=== PATIENT | male | born 1940 | race African-American/Black ===

== ENCOUNTER 2017-07-21 09:50 | Inpatient (IN) | payer MEDICARE ==
[2017-07-21 10:46] LABS: #Eosinphils 0.2 thou/uL (0.0-0.7); #Lymphocytes 1.9 thou/uL (1.20-3.40); #Monocytes 0.8 thou/uL (0.11-0.59); #Neutrophils 7.3 thou/uL (1.40-6.50); %Basophils 0.1 % (0.0-1.0); %Eosinophils 1.6 % (0.0-10.0); %Lymphocytes 18.7 % (21.0-51.0); %Monocytes 7.8 % (0.0-10.0); %Neutrophils 71.8 % (42.0-75.0); Hemoglobin 6.9 g/dL (14.0-18.0); Mean Corpuscular HGB CONC 28.3 g/dL (32.0-36.0); Mean Corpuscular Hemoglobin 18.3 pg (27.0-31.0); Mean Corpuscular Volume 64.5 fl (80.0-94.0); Mean Platelet Volume 5.4 fL (7.4-10.4); Platelet Count 307 thou/uL (130-400); RBC Distribution Width 18.6 % (11.5-14.5); White Blood Cell (WBC) Count 10.2 thou/uL (4.8-10.8)
[2017-07-21 11:02] LABS: Bilirubin Negative (Negative); Blood, Urine Negative (Negative); Glucose, Urine (Dipstick) 500 mg/dL (Negative); Leukocyte Small (Negative); Nitrite Positive (Negative); Protein, Urine (Dipstick) Negative (Neg-Trace); Urobilinogen 0.2 mg/dL (0.2-1.0)
[2017-07-21 11:05] LABS: Clarity CLEAR (Clear)
[2017-07-21 11:08] LABS: Bacteria/HPF 2+ HPF (None Seen); Hyaline Casts/LPF NONE SEEN LPF (0-3 Hyaline); RBC/HPF 0-3 HPF (0-3); Squamous Epithelial 0-3 HPF (0-3)
[2017-07-21 11:22] LABS: Hypochromia MODERATE=16-30 cells (100X) (0-5/hpf); MDiff Complete? YES; Microcytosis MARKED = >30 cells (100X) (0-5/hpf); Ovalocytes SLIGHT = 2-5 cells (100X) (0-1/hpf); PLT Morphology Comment Appears Adequate; Polychromasia SLIGHT = 2-3 cells (100X) (0-2/hpf)
[2017-07-21 11:35] LABS: ALT (SGPT) 13 U/L (8-55); AST (SGOT) 10 U/L (5-34); Albumin 3.4 g/dL (3.4-4.8); Alkaline Phosphatase 109 U/L (40-150); Anion Gap 10 mmol/L (10-20); BUN (Urea Nitrogen) 7 mg/dL (8.4-25.7); Bilirubin, Total 0.3 mg/dL (0.2-1.2); Calc. Creatinine Clearance 0 mL/min (70-130); Calcium 9.4 mg/dL (7.8-10.44); Carbon Dioxide 24 mmol/L (23-31); Chloride 103 mmol/L (98-107); Estimated GFR-MDRD 83; Globulin 3.5 g/dL (2.4-3.5); Glucose 273 mg/dL (83-110); Protein, Total 6.9 g/dL (5.8-8.1); Sodium 133 mmol/L (136-145)
[2017-07-21 12:26] LABS: Reflex for Review?? YES
[2017-07-21] MEDS ORDERED: Fentanyl 100 MCG/2 ML VIAL ONE (12:31)
[2017-07-21] MEDS ORDERED: diphenhydrAMINE 50 MG/ML VIAL ONE (12:32)
[2017-07-21] MEDS ORDERED: Bisacodyl 5 MG TAB PO PRN (13:16)
[2017-07-21] MEDS ORDERED: Acetaminophen 650 MG Suppository PR PRN (13:16)
[2017-07-21] MEDS ORDERED: Acetaminophen 325 MG TAB PO PRN (13:16)
[2017-07-21] MEDS ORDERED: Ondansetron HCl/PF 4 MG/2 ML Vial IVP PRN (13:16)
[2017-07-21] MEDS ORDERED: cefTRIAXone\\ROCEPHIN 1 GM in Sodium Chloride 0.9% 100 ML IVPB SCH (13:30)
[2017-07-21 14:21] LABS: Iron 12 ug/dL (65-175); Iron Binding Capacity, Total 356 mcg/dL (261-462)
[2017-07-21] MEDS ORDERED: Dextrose 50% Abboject 50 ML SYRINGE SLOW IVP PRN (14:38)
[2017-07-21] MEDS ORDERED: Dextrose 5% in Water 1,000 ML IV PRN (14:38)
[2017-07-21] MEDS ORDERED: HumaLOG 300 UNITS/3 ML VIAL SC PRN (14:38)
[2017-07-21 14:43] LABS: Ferritin 4.15 ng/mL (22-322); Thyroid Stimulating Hormone 0.2255 uIU/mL (0.35-4.94)
[2017-07-21 14:58] LABS: Folate (Folic Acid) 12.6 ng/mL (7.0-31.4)
--- NOTE | 2017-07-21 15:09 | HP ---
PRIMARY CARE PHYSICIAN: Dr. Catrachito Mayo CHIEF COMPLAINT: Anemia. HISTORY OF PRESENT ILLNESS: Mr. Pacheco is a pleasant 76-year-old gentleman who was seen at [facility] on 07/21/2017 following transfer from [place]. About 1-1/2 months ago, he developed a lesion over his penis. He reports that it was aching and burn ing. He denies having any dysuria. He was treated with an anti-itch cream as well as what appears t o be an antifungal cream. He reports that the pain continued. He denies any discharge from the peni s. He denies any fevers or chills. He denies any nausea or vomiting. Today, he reports the pain is sharp, 10/10, nonradiating, no known aggravating or relieving factors, not accompanied by fevers or chills. He also reports weight loss of 15 pounds over the last 2 months. He reports that he is eati ng well. He presented to the emergency room at [place] for his penile pain. There, he was found to have anemia. He was transferred to this facility for further management. REVIEW OF SYSTEMS: The following complete review of systems was negative, unless otherwise mentioned in the HPI or below: Constitutional: Weight loss or gain, ability to conduct usual activities. Skin: Rash, itching. Eyes: Double vision, pain. ENT/Mouth: Nose bleeding, neck stiffness, pain, tenderness. Cardiovascular: Palpitations, dyspnea on exertion, orthopnea. Respiratory: Shortness of breath, wheezing, cough, hemoptysis, fever or night sweats. Gastrointestinal: Poor appetite, abdominal pain, heartburn, nausea, vomiting, constipation, or diarrhea. Genitourinary: Urgency, frequency, dysuria, nocturia. Musculoskeletal: Pain, swelling. Neurologic/Psychiatric: Anxiety, depression. Allergy/Immunologic: Skin rash, bleeding tendency. PAST MEDICAL HISTORY: Significant for coronary artery disease, congestive heart failure, hypertensio n, dyslipidemia, prostate cancer. PAST SURGICAL HISTORY: Significant for cardiac catheterization and prostate biopsy. SOCIAL HISTORY: The patient smokes half a pack of cigarettes a day. He denies any alcohol use or re creational drug use. FAMILY HISTORY: Significant for colon cancer in his sister. CODE STATUS: I discussed his code status. He is FULL CODE. ALLERGIES: No known drug allergies. CURRENT MEDICATIONS: Include aspirin 81 mg daily, lisinopril 20 mg daily, isosorbide mononitrate 20 mg daily, Lantus insulin 12 units subcutaneously 2 times a day. PHYSICAL EXAMINATION: GENERAL: Mr. Pacheco is awake and alert, not in acute distress. VITAL SIGNS: Blood pressure is 177/81. Pulse is 92, he is breathing at rate of 16, and saturating 9 8% on room air. He is afebrile. EYES: He has conjunctival erythema. No scleral icterus. ENT: Moist mucosal membranes, no oropharyngeal erythema or exudates. NECK: Supple, nontender, normal range of movement. Trachea is midline. RESPIRATORY: Accessory muscles of breathing are not active. Chest wall movements are symmetric bila terally. LUNGS: Clear to auscultation without wheeze, rhonchi or crepitations. CARDIOVASCULAR: S1 and S2 are heard, regular. LUNGS: Peripheral pulses palpable. No carotid bruit, no pericardial rub. ABDOMEN: Soft, distended, nontender, bowel sounds heard, no hepatomegaly, no splenomegaly. GENITOURINARY: He is tender to touch over the penis. I could not retract his foreskin secondary to pain. He does have a white material under the prepuce. It is unclear whether this is his antifungal cream or a discharge. NEUROLOGIC: Cranial nerves II-XII are intact. Deep tendon reflexes are 2+. LYMPHATIC: No cervical lymphadenopathy. SKIN: No rashes or subcutaneous nodules. PSYCHIATRIC: Normal mood and normal affect, patient is oriented to person, place, month and year, bu t not to date. LABORATORY DATA: Mr. Pacheco labs and investigations were reviewed. He has a normal white count, micr ocytic anemia with hemoglobin of 6.9, normal platelet count, last known hemoglobin was 12.4 on 2013, he has mild hyponatremia with sodium 133, normal potassium, normal creatinine, unremarkable kleber er profile, urinalysis is positive for nitrites and leukocyte esterase. ASSESSMENT AND PLAN: Mr. Pacheco is a pleasant 76-year-old gentleman who was seen at [facility] on 07/21/2017. His problem list includes: 1. Anemia: He has microcytic anemia, etiology unclear. He will be admitted to the hospital for fur ther management. We will check iron studies, vitamin B12 and folate level. We will consult GI for m icrocytic anemia, given his history of recent weight loss. 2. Urinary tract infection. He has evidence of urinary tract infection. We will start him on ceftr iaxone. 3. Penile lesions. We will start him on empiric fluconazole and request Urology Service input. Uro logy Service has been consulted by the emergency room physician. 4. Hyponatremia: Mild, recheck sodium level. 5. Diabetes mellitus. I will start Accu-Cheks, insulin sliding scale. 6. Hypertension: Monitor vital signs, titrate antihypertensives as needed. 7. Coronary artery disease: Stable. Many thanks for allowing me to participate in your patient's care. Please feel free to contact me wi th any questions or concerns. LEVEL OF RISK: Moderate. LEVEL OF COMPLEXITY: Moderate.
[2017-07-21 15:37] VITALS: BMI 31.6
[2017-07-21] MEDS ORDERED: GoLYTELY 4,000 ml Bottle PO SCH (16:00)
[2017-07-21] MEDS: cefTRIAXone\\ROCEPHIN 1 GM, Syringe 0.4 ML in Sterile Water 9.6 ML SLOW IVP SCH (16:30)
--- NOTE | 2017-07-21 18:26 | CON ---
DATE OF CONSULTATION: 07/21/2017 GASTROENTEROLOGY INPATIENT CONSULTATION REASON FOR CONSULTATION: Anemia. HISTORY OF PRESENT ILLNESS: Kirby Pacheco is a very pleasant 76-year-old -[place]ian gentleman wi th a prior history of prostate cancer, diabetes type 2, GERD, congestive heart failure, and hyperlipi demia. He evidently had a cardiac catheterization way back in 1990. He does smoke cigarettes. He w as admitted to the hospital earlier today after presenting to the emergency department with penile pa in and rash, which has been thought to represent fungal infection. However, upon evaluation, he was found to be severely anemic and iron deficient, and so he has been admitted for further workup. The patient reports that last summer he was told elsewhere that he was anemic, but he never followed up f or this. He never got put on iron supplementation. He denies any overt bleeding from anywhere excep t for getting nosebleeds may be every few months, but he denies any hematemesis, melena, hematochezia or gross hematuria. He says prior to last summer he never had any history of anemia. He has never undergone EGD or colonoscopy. Notably, he thinks his father had colon cancer and he believes his sis ter had colon cancer as well in her 70s. He takes aspirin daily and Advil on an as needed basis, but he denies any primary gastrointestinal symptoms such as abdominal pain, nausea, vomiting, diarrhea, constipation, melena or hematochezia. He has been losing weight over the past year. He thinks it ma y have been about 100 pounds, but his daughter does not think it has been nearly that much. REVIEW OF SYSTEMS: Full review of systems including constitutional, head, eyes, ears, nose, throat, GI, , cardiovascular, respiratory, musculoskeletal, and neurologic systems is negative except as no alexandro in the HPI. PAST MEDICAL HISTORY: Diabetes type 2, hypertension, hyperlipidemia, congestive heart failure, and t obacco abuse. ALLERGIES: No known drug allergies. MEDICATIONS: Aspirin 81 mg daily, lisinopril 20 mg daily, isosorbide mononitrate 20 mg daily, Lantus 12 units twice daily. SOCIAL HISTORY: He smokes 1-1/2 packs per day. No alcohol or drug abuse. He lives at home with dianne morrow. FAMILY HISTORY: He believes his father had colon cancer. He has more certain that his sister had co sofia cancer and of this in her 70s. PHYSICAL EXAMINATION: VITAL SIGNS: Temperature 98.8, pulse 87, blood pressure 161/80, 99% oxygen saturation on room air. GENERAL: A 76-year-old -[place]ian man lying in bed comfortably, in no distress. SKIN: No jaundice, no rashes were palpable. EYES: No scleral icterus. Extraocular movements are intact. ENT: Mucous membranes moist, no oral lesions. LYMPH: No submandibular, supraclavicular lymphadenopathy. THYROID: Nontender to palpation. HEART: Regular rate and rhythm. LUNGS: Clear to auscultation bilaterally. ABDOMEN: Soft, bowel sounds active. Nontender to palpation throughout. No masses or organomegaly a ppreciated. EXTREMITIES: No peripheral edema. VESSELS: Radial pulses 2+ bilaterally. NEUROLOGIC: Cranial nerves II through XII intact bilaterally. No focal deficits. LABORATORY STUDIES: Hemoglobin 6.9, MCV 64.5, WBC 10.2, platelets 307. Sodium 133, potassium 4.0, B UN 7, creatinine 1.06, glucose 302, ferritin only 4.15, iron only 12, TIBC 356. LFTs all normal with total bilirubin 0.3, alkaline phosphatase 109, AST 10, ALT 13, albumin 3.4. Vitamin B12 was normal at 378. Folate is normal at 12.6. TSH is low at 0.22. ASSESSMENT: 1. Iron deficiency anemia. 2. Unintentional weight loss. 3. Family history of colon cancer. PLAN: I discussed with Mr. Pacheco that his presentation is concerning for potential occult bleeding l esion. He does have a strong family history of colon cancer and has never undergone endoscopy. Note , he also will take NSAIDs on an as needed basis. Agree with blood transfusion. We will go ahead an d schedule him for EGD and colonoscopy tomorrow after bowel preparation tonight. The patient underst ands and agrees with the plan.
[2017-07-21] MEDS: Nicotine 14 MG PATCH TD SCH (20:41)
[2017-07-21] MEDS ORDERED: FLU VACC TS2017-18 (>65YR) 0.5 ML SYRINGE IM ONE (21:00)
[2017-07-22 04:27] LABS: Anion Gap 8 mmol/L (10-20); BUN (Urea Nitrogen) 8 mg/dL (8.4-25.7); Calc. Creatinine Clearance 73 mL/min (70-130); Calcium 9.4 mg/dL (7.8-10.44); Carbon Dioxide 25 mmol/L (23-31); Chloride 105 mmol/L (98-107); Estimated GFR-MDRD 84; Glucose 179 mg/dL (83-110); Potassium 4.3 mmol/L (3.5-5.1); Sodium 134 mmol/L (136-145)
[2017-07-22 04:35] LABS: #Eosinphils 0.1 thou/uL (0.0-0.7); #Lymphocytes 1.8 thou/uL (1.20-3.40); #Monocytes 0.8 thou/uL (0.11-0.59); #Neutrophils 8.5 thou/uL (1.40-6.50); %Basophils 0.2 % (0.0-1.0); %Eosinophils 1.3 % (0.0-10.0); %Lymphocytes 15.9 % (21.0-51.0); %Monocytes 7.1 % (0.0-10.0); %Neutrophils 75.5 % (42.0-75.0); Anisocytosis SLIGHT = 6-15 cells (100X) (0-5/hpf); Elliptocytes SLIGHT = 2-5 cells (100X) (0-1/hpf); Hemoglobin 7.7 g/dL (14.0-18.0); Hypochromia MODERATE=16-30 cells (100X) (0-5/hpf); MDiff Complete? YES; Mean Corpuscular Hemoglobin 19.1 pg (27.0-31.0); Mean Corpuscular Volume 65.7 fl (80.0-94.0); Mean Platelet Volume 5.4 fL (7.4-10.4); PLT Morphology Comment Appears Adequate; Platelet Count 299 thou/uL (130-400); RBC Distribution Width 19.1 % (11.5-14.5); Red Blood Cell (RBC) Count 4.05 mill/uL (4.70-6.10); White Blood Cell (WBC) Count 11.3 thou/uL (4.8-10.8)
[2017-07-22] MEDS: Fluconazole 100 MG TAB PO SCH (08:33)
[2017-07-22 09:20] LABS: Free T4 (Free Thyroxine) 1.01 ng/dL (0.70-1.48)
[2017-07-22] MEDS ORDERED: Fentanyl 100 MCG/2 ML VIAL ONE (13:43)
[2017-07-22] MEDS: cefTRIAXone\\ROCEPHIN 1 GM, Syringe 0.4 ML in Sterile Water 9.6 ML SLOW IVP SCH (14:59)
--- NOTE | 2017-07-22 15:25 | PDOC.PN ---
- Subjective Encounter Start Date: 07/22/17 Encounter Start Time: 07:40 Pt seen for followup re: anemia. Denies chest pain or shortness of breath. Has ongoing penile pain. - Objective Resuscitation Status: Resuscitation Status FULL:Full Resuscitation MAR Reviewed: Yes Vital Signs & Weight: Vital Signs (12 hours) Temp Pulse Resp BP Pulse Ox 07/22/17 12:00 98.6 F 89 16 147/74 H 100 07/22/17 11:31 98.5 F 87 16 160/80 H 97 07/22/17 08:33 160/84 H 07/22/17 08:00 98.5 F 95 16 99 07/22/17 07:23 98.5 F 95 16 181/95 H 99 07/22/17 04:25 98.4 F 77 20 158/77 H 98 Weight Admit Weight 184 lb 3.2 oz Weight 184 lb 3.2 oz I&O: 07/21/17 07/22/17 07/23/17 06:59 06:59 06:59 Intake Total 350 Balance 350 Result Diagrams: 07/22/17 03:52 07/22/17 03:52 Additional Labs: Accuchecks 07/22/17 07/21/17 07/21/17 11:12 20:44 15:33 POC Glucose 163 H 180 H 354 H Phys Exam - Physical Examination Obese HEENT: PERRLA, moist MMs, sclera anicteric, oral pharynx no lesions Neck: no nodes, no JVD, supple, full ROM Respiratory: no wheezing, no rales, no rhonchi, clear to auscultation bilateral Cardiovascular: RRR, no rub Gastrointestinal: soft, non-tender, positive bowel sounds distention Neurological: moves all 4 limbs Psychiatric: normal affect Skin: no rash Dx/Plan (1) Anemia Code(s): D64.9 - ANEMIA, UNSPECIFIED Status: Acute (2) Penile lesion Code(s): N48.9 - DISORDER OF PENIS, UNSPECIFIED Status: Acute (3) Urinary tract infection Status: Acute (4) DM2 (diabetes mellitus, type 2) Status: Chronic - Plan * . Continue IV ceftriaxone. Pt going for EGD/C-scope. Continue acccuchecks, insulin sliding scale. Await urology consult. Review of Systems - Review of Systems Constitutional: negative: fever, chills, sweats, weakness, malaise Respiratory: negative: Cough, Dry, Shortness of Breath, Hemoptysis, SOB with Excertion, Pleuritic Pain, Sputum, Wheezing Cardiovascular: negative: chest pain, palpitations, orthopnea, paroxysmal nocturnal dyspnea, edema, light headedness Gastrointestinal: negative: Nausea, Vomiting, Abdominal Pain, Diarrhea, Constipation, Melena, Hematochezia Genitourinary: Other (Penile pain). negative: Dysuria, Frequency, Incontinence , Hematuria, Retention - Medications/Allergies Allergies/Adverse Reactions: Allergies Allergy/AdvReac Type Severity Reaction Status Date / Time No Known Allergies Allergy Verified 07/21/17 15:38 Medications: Current Medications Acetaminophen (Tylenol) 650 mg PO Q4H PRN PRN Reason: Headache/Fever or Pain Acetaminophen (Tylenol) 650 mg [place] Q4H PRN PRN Reason: Headache/Fever or Pain Bisacodyl (Dulcolax) 10 mg PO DAILYPRN PRN PRN Reason: Constipation Dextrose/Water (Dextrose 50%) 25 gm SLOW IVP PRN PRN PRN Reason: Hypoglycemia Fluconazole (Diflucan) 100 mg PO DAILY [facility] Last Admin: 07/22/17 08:33 Dose: 100 mg Glucagon (Glucagon) 1 mg IM PRN PRN PRN Reason: Hypoglycemia Ceftriaxone Sodium 1 gm/ (Syringe 0.4 ml/ Sterile Water) 10 mls @ 120 mls/hr SLOW IVP 1400 [facility] Last Admin: 07/22/17 14:59 Dose: Not Given Dextrose/Water (D5w) 1,000 mls @ 0 mls/hr IV .Q0M PRN; As Directed PRN Reason: Hypoglycemia Insulin Human Lispro (Humalog) 0 units SC .MILD SLIDING SCALE PRN PRN Reason: Mild Correctional Scale Last Admin: 07/21/17 16:24 Dose: 6 unit Nicotine (Nicoderm Patch) 14 mg TD Q24HR [facility] Last Admin: 07/21/17 20:41 Dose: 14 mg
--- NOTE | 2017-07-22 15:54 | OP ---
DATE OF PROCEDURE: 07/22/2017 SURGEON: Finn Douglas MD [employer]VENUE CYCLE MANAGER SURGEON: None. PROCEDURES: 1. Esophagogastroduodenoscopy with biopsies. 2. Colonoscopy, aborted due to poor bowel preparation. INDICATIONS: 1. Iron deficiency anemia. 2. Weight loss. 3. Family history of colon cancer. MEDICATIONS: See anesthesia record. FINDINGS: After discussion of the risks, benefits and alternatives of the procedure, informed consen t was obtained and witnessed. Pre-endoscopic cardiopulmonary examination was satisfactory. Timeout was performed before sedation was achieved. Sedation was achieved with anesthesia assistance in the endoscopy unit. A Pentax adult upper endoscope was placed into the oropharynx and passed through the cricopharyngeus under direct visualization. In the proximal esophagus at 23 cm from the incisors, t here is a very small area, which appears to represent an inlet patch. There is some erythema, but no oozing and no bleeding from this area. The remainder of the esophagus appears normal throughout wit h a normal-appearing Z-line. The endoscope was advanced into the stomach. Forward and retroflexed v iews of the entire gastric mucosa were obtained. In the gastric antrum, there is some mild gastritis characterized by friability, atrophic mucosa and a few shallow nonbleeding erosions. Biopsies were obtained from the gastric antrum and body to rule out H. pylori infection. The endoscope was then ad vanced beyond the pylorus and into the first and second portions of the duodenum. There is a medium size nonbleeding arteriovenous malformation in the second portion of the duodenum and a few other pun ctate AVMs in the duodenal bulb also nonbleeding. The upper endoscope was completely withdrawn and t he patient was repositioned. Digital rectal exam was performed, which demonstrated some external hemorrhoids. A Pentax adult colo noscope was inserted into the anus and advanced forward in the usual fashion. The quality of the bow el preparation was poor. There was a large amount of solid and semisolid stool in the rectum, sigmoi d colon and descending colon. After passage of the colonoscope to 50 cm, it became evident that this would be too much to clear by irrigation and suctioning; and therefore, the procedure was aborted. The endoscope was completely withdrawn and the patient allowed to recover. The patient tolerated the procedure well. There were no immediate post-procedure complications. IMPRESSION: 1. Small inlet patch in the upper esophagus at 23 cm, nonbleeding. 2. Mild erosive gastropathy in the antrum, biopsied. 3. A few small duodenal arteriovenous malformations, nonbleeding. 4. Poor bowel preparation, unable to visualize the colon. RECOMMENDATIONS: 1. Daily proton pump inhibitor. 2. Avoid NSAIDs. 3. Follow up pathology results on the gastric biopsies. 4. Repeat bowel prep tonight. 5. Repeat colonoscopy tomorrow.
[2017-07-22] MEDS ORDERED: Lidocaine 1% PF 5 ML VIAL ONE (15:59)
[2017-07-22] MEDS ORDERED: Propofol 200 MG/20 ML VIAL ONE (15:59)
[2017-07-22] MEDS ORDERED: GoLYTELY 4,000 ml Bottle PO SCH (17:00)
[2017-07-22] MEDS: Nicotine 14 MG PATCH TD SCH (20:59)
--- NOTE | 2017-07-23 01:28 | CON ---
HISTORY OF PRESENT ILLNESS: This is a 76-year-old -[place] male, I was asked to see on consu lt late this afternoon and a call was made. He was admitted yesterday. He was admitted with a diagn osis of scrotal cellulitis and anemia. He was transfused and he underwent an EGD today which was not tj for revealing. He is to have a colonoscopy tomorrow, is undergoing prep for that now. He did n ot realize he was anemic this is the first time he has been aware of it. He had not been feeling wel l, but feels a bit better after his transfusion. He has had a rash on his scrotum for 2 months. He has seen his family doctor, Dr. Mayo, he was treated with a topical antifungal cream and has not helped itchy rash. He denies any urinary incontinence. He is a type 2 diabetic. He states that he voids adequately. Force of stream is good. There is no dysuria, no blood in his urine ever. No hi story of urinary tract infections or stone diseases. He gets up 3 times at night. He has occasional urgency during the day, but he is not really bothered with any urge incontinence. Feels like he emp ties okay. He has a strong family history of prostate cancer in his father and at least 2 brothers h ad it, one brother that may have from it. He apparently had either an elevated PSA or pr ostate nodule and 2 or 3 years ago, he had undergone a prostate biopsy by one of the urologists at [facility] and he was told he does not have prostate cancer. I can find no record of this year at [facility], so I can check tomorrow at my office at [facility] to see if I can jin this down. I have been asked to see him because of this scrotal cellulitis. PAST MEDICAL HISTORY: He has type 2 diabetes as mentioned, he has a history of congestive heart fail ure, hypertension, hyperlipidemia, and coronary artery disease. PAST SURGICAL HISTORY: He has had a cardiac catheterization done, this is the only surgical procedur e as well as prostate biopsy which again he states did not show prostate cancer. ALLERGIES: He has no known drug allergies. SOCIAL HISTORY: He does smoke a half pack of cigarettes a day, which he has done for a long time. H e does not drink at all. FAMILY HISTORY: Positive for colon cancer as well as a very strong family history for prostate cance r. MEDICATIONS: His routine medicines were isosorbide, insulin, lisinopril, and aspirin as well as topi ruy antifungal cream. His current medications are Tylenol, Dulcolax, Rocephin, Diflucan, which has a lready been started on 100 mg a day, and Protonix. LABORATORY: His hemoglobin is 6.9 yesterday, 7.7 today that was after transfusion. His creatinine i s 1.05 this morning and was 1.06 yesterday. His urinalysis when he came in showed nitrites to be pos itive, 7-10 white cells, 2+ bacteria. Culture has been set up and is pending. Blood cultures are se t up, there are also pending currently. His vital signs since he has been here, his T-max has been 99.0, his blood pressure and pulse have al l been normal. His O2 sat on room air have been fine. He had apart from the EGD and attempted colon oscopy today, he has had no other procedures done nor any other imaging done. PHYSICAL EXAMINATION: His flanks are nontender. His abdomen is soft, nontender. Bladder is not dist ended. He is not circumcised. There is mild phimosis, but he can retract the foreskin, there are so me scarring of the distal foreskin probably related to his diabetes. There are no abnormal lesions n oted on the penis currently. He does have some areas of ulceration on the scrotum and some mild eryt martita. There is nothing to suggest Lupillo's. There is no crepitance. There is no fluctuance. Rec cynthia exam reveals normal tone. He does have a firm and nodular prostate and an enlarged prostate. I cannot find that he has had a PSA blood test anywhere in the [facility]. IMPRESSION: 1. Mild scrotal erythema with some areas of mild ulceration, which I am not sure of the cause of. [place] has been started on Diflucan, I think keeping him on that for a few days and see me, if it does not clear up reasonable and does not appear that is related to urinary incontinence. Should it not bronwyn r up with Diflucan, then it may be that he will require dermatologic evaluation. 2. Prosthetic induration with a family history of prostate cancer, but no definite history of prosta te cancer on him and I am going to get a PSA blood test done on him while he is here and I will try t o jin down his prostate biopsies from [facility]. I will follow along with you during this adm ission.
[2017-07-23 04:51] LABS: #Eosinphils 0.1 thou/uL (0.0-0.7); #Lymphocytes 1.5 thou/uL (1.20-3.40); #Monocytes 0.8 thou/uL (0.11-0.59); %Basophils 0.4 % (0.0-1.0); %Eosinophils 1.5 % (0.0-10.0); %Lymphocytes 17.8 % (21.0-51.0); %Monocytes 9.4 % (0.0-10.0); Anion Gap 11 mmol/L (10-20); BUN (Urea Nitrogen) 10 mg/dL (8.4-25.7); Calc. Creatinine Clearance 74 mL/min (70-130); Calcium 9.6 mg/dL (7.8-10.44); Carbon Dioxide 27 mmol/L (23-31); Chloride 106 mmol/L (98-107); Estimated GFR-MDRD 84; Glucose 130 mg/dL (83-110); Hemoglobin 7.8 g/dL (14.0-18.0); Mean Corpuscular HGB CONC 28.8 g/dL (32.0-36.0); Mean Corpuscular Hemoglobin 19.1 pg (27.0-31.0); Mean Corpuscular Volume 66.2 fl (80.0-94.0); Mean Platelet Volume 11.7 fL (7.4-10.4); Platelet Count 299 thou/uL (130-400); Potassium 4.5 mmol/L (3.5-5.1); RBC Distribution Width 19.4 % (11.5-14.5); Sodium 139 mmol/L (136-145); White Blood Cell (WBC) Count 8.5 thou/uL (4.8-10.8)
[2017-07-23] MEDS: Fluconazole 100 MG TAB PO SCH (08:37)
[2017-07-23] MEDS ORDERED: Iopamidol 370 76% 50 ML VIAL FS ONE (13:15)
[2017-07-23] MEDS ORDERED: ISOVUE-370 76%-LOCM 1 ML ONE (13:15)
[2017-07-23] MEDS: cefTRIAXone\\ROCEPHIN 1 GM, Syringe 0.4 ML in Sterile Water 9.6 ML SLOW IVP SCH (14:03)
[2017-07-23] MEDS ORDERED: Propofol 200 MG/20 ML VIAL ONE (15:14)
[2017-07-23] MEDS ORDERED: Promethazine HCl 25 MG/ML VIAL SLOW IVP PRN (15:21)
[2017-07-23] MEDS ORDERED: Ondansetron HCl/PF 4 MG/2 ML Vial IVP PRN (15:21)
[2017-07-23] MEDS ORDERED: Promethazine HCl 25 MG/ML VIAL IM PRN (15:21)
--- NOTE | 2017-07-23 16:52 | PDOC.PN ---
- Subjective Encounter Start Date: 07/23/17 Encounter Start Time: 08:20 Pt seen for followup re: anemia. Denies chest pain, shortness of breath, fevers or chills. - Objective Resuscitation Status: Resuscitation Status FULL:Full Resuscitation MAR Reviewed: Yes Vital Signs & Weight: Vital Signs (12 hours) Temp Pulse Resp BP BP Pulse Ox 07/23/17 16:12 97.7 F 95 16 173/81 H 100 07/23/17 11:34 98 F 89 16 178/78 H 97 07/23/17 08:00 98.7 F 91 16 99 07/23/17 07:00 98.7 F 91 16 170/78 H 99 07/23/17 05:50 97.9 F 94 20 149/74 H Weight Admit Weight 184 lb 3.2 oz Weight 184 lb 3.2 oz I&O: 07/22/17 07/23/17 07/24/17 06:59 06:59 06:59 Intake Total 350 Balance 350 Result Diagrams: 07/23/17 03:58 07/23/17 03:58 Additional Labs: Accuchecks 07/23/17 07/23/17 07/23/17 16:11 11:33 05:53 POC Glucose 96 112 H 136 H 07/22/17 07/22/17 20:59 16:14 POC Glucose 149 H 136 H Phys Exam - Physical Examination Obese HEENT: moist MMs Neck: supple Respiratory: clear to auscultation bilateral Cardiovascular: RRR Gastrointestinal: soft Neurological: moves all 4 limbs Psychiatric: normal affect Skin: cap refill <2 seconds Dx/Plan (1) Anemia Code(s): D64.9 - ANEMIA, UNSPECIFIED Status: Acute (2) Penile lesion Code(s): N48.9 - DISORDER OF PENIS, UNSPECIFIED Status: Acute (3) Urinary tract infection Status: Acute (4) DM2 (diabetes mellitus, type 2) Status: Chronic - Plan continue antibiotics, PT/OT, out of bed/ambulate * . UTI with rodas-sensitive Klebsiella pneumoniae. Colonoscopy today. Appreciate GI and urology services input. TSH low but free T3 and freeT4 are normal. Review of Systems - Review of Systems Respiratory: negative: Cough, Dry, Shortness of Breath, Hemoptysis, SOB with Excertion, Pleuritic Pain, Sputum, Wheezing Cardiovascular: negative: chest pain, palpitations, orthopnea, paroxysmal nocturnal dyspnea, edema, light headedness - Medications/Allergies Allergies/Adverse Reactions: Allergies Allergy/AdvReac Type Severity Reaction Status Date / Time No Known Allergies Allergy Verified 07/21/17 15:38 Medications: Current Medications Acetaminophen (Tylenol) 650 mg PO Q4H PRN PRN Reason: Headache/Fever or Pain Acetaminophen (Tylenol) 650 mg [place] Q4H PRN PRN Reason: Headache/Fever or Pain Bisacodyl (Dulcolax) 10 mg PO DAILYPRN PRN PRN Reason: Constipation Dextrose/Water (Dextrose 50%) 25 gm SLOW IVP PRN PRN PRN Reason: Hypoglycemia Fluconazole (Diflucan) 100 mg PO DAILY [facility] Last Admin: 07/23/17 08:37 Dose: 100 mg Glucagon (Glucagon) 1 mg IM PRN PRN PRN Reason: Hypoglycemia Ceftriaxone Sodium 1 gm/ (Syringe 0.4 ml/ Sterile Water) 10 mls @ 120 mls/hr SLOW IVP 1400 [facility] Last Admin: 07/23/17 14:03 Dose: Not Given Dextrose/Water (D5w) 1,000 mls @ 0 mls/hr IV .Q0M PRN; As Directed PRN Reason: Hypoglycemia Insulin Human Lispro (Humalog) 0 units SC .MILD SLIDING SCALE PRN PRN Reason: Mild Correctional Scale Last Admin: 07/21/17 16:24 Dose: 6 unit Nicotine (Nicoderm Patch) 14 mg TD Q24HR [facility] Last Admin: 07/22/17 20:59 Dose: 14 mg Ondansetron HCl (Pacu-Zofran) 4 mg IVP ONE PRN PRN Reason: Nausea/Vomiting Stop: 07/23/17 18:21 Pantoprazole Sodium (Protonix) 40 mg PO DAILY [facility] Last Admin: 07/23/17 08:37 Dose: 40 mg Promethazine HCl (Pacu-Phenergan) 6.25 mg SLOW IVP ONE PRN PRN Reason: Nausea/Vomiting Stop: 07/23/17 18:21 Promethazine HCl (Pacu-Phenergan) 6.25 mg IM ONE PRN PRN Reason: Nausea/Vomiting Stop: 07/23/17 18:21
--- NOTE | 2017-07-23 17:01 | OP ---
PREOPERATIVE DIAGNOSIS: Iron deficiency anemia. PROCEDURE IN DETAIL: After informed consent was obtained, the patient was placed in the left lateral decubitus position. Anesthesia was administered per the Anesthesia Department. Forward-viewing end oscope was inserted into the rectum after perianal inspection and rectal exam were normal. It was pa ssed to the transverse colon, where a circumferential mass was noted. This mass was partially obstru cted, but I was able to get the colonoscope through to the cecum. The cecum, ileocecal valve, and ap pendiceal orifice were normal. The prep was excellent. The ascending, transverse, descending, sigmo id and rectum were normal except for a circumferential mass in the transverse colon. This was biopsi ed. In the descending colon, a polyp was noted and removed with cold snare polypectomy. There is al so a small polyp in the rectum that was removed with cold snare polypectomy. Retroflexion in rectum was normal. ASSESSMENT: 1. Transverse colon mass - likely malignant. 2. Two small colon polyps - status post polypectomy. 3. Otherwise normal colonoscopy. RECOMMENDATIONS: 1. CEA. 2. CT. 3. Surgical opinion.
--- NOTE | 2017-07-23 18:29 | RAD ---
TWO VIEW CHEST: 07/23/17 HISTORY: Tobacco use. Colon cancer. COMPARISON: 03/05/14. Lungs appear clear. Heart and mediastinum unremarkable. Osseous structures unremarkable. IMPRESSION: Unremarkable chest. POS: [facility]
[2017-07-23 18:36] LABS: CKMB 2.3 ng/mL (0-6.6); Troponin I 0.016 ng/mL (< 0.028)
--- NOTE | 2017-07-23 18:38 | CT ---
CT ABDOMEN AND PELVIS WITH IV CONTRAST: 07/23/17 Multiple axial tomograms obtained through the abdomen and pelvis with IV enhancement. HISTORY: Colon cancer, diagnosed with colonoscopy. Lung bases show mild vascular engorgement. Review of the liver reveals two tiny low density foci in the mid right lobe, one lesion measuring janes roximately 5 mm and the other measuring approximately 3 mm. This may represent tiny cysts but followu p is recommended given history of colon cancer. Spleen and pancreas unremarkable. Adrenal glands and kidneys unremarkable. No hydronephrosis. Small bowel loops appear normal. Appendix appears normal. There is an area of mucosal thickening in t he region of the splenic flexure and there appears to be luminal narrowing at this location and this may be the site of patient's known colon cancer. This has an apple core type appearance. The aorta shows atherosclerotic change. There is ectasia of the distal abdominal aorta with diameter measured at 2.8 cm. No adenopathy identified. Images of the pelvis show mild prostatic hypertrophy. O sseous structures are unremarkable. IMPRESSION: 1. Two tiny low density foci seen in the mid right lobe of the liver. These are indeterminate bu t could represent tiny cysts. Short term followup is recommended to confirm stability given history o f colon cancer. 2. Focal area of mucosal thickening and luminal narrowing in the colon in the region of the sple clarissa flexure, probably corresponds to patient's known colon cancer. 3. Ectasia of the distal abdominal aorta with diameter measuring up to 2.8 cm. 4. Mild prostatic hypertrophy. POS: [facility]
[2017-07-23] MEDS ORDERED: hydrALAZINE 20 MG/ML VIAL SLOW IVP PRN (20:12)
[2017-07-23] MEDS ORDERED: HYDROcodone/Acetaminophen 10/325 mg Tablet PO PRN (20:13)
[2017-07-23] MEDS ORDERED: Lisinopril 20 MG TAB PO SCH (20:15)
[2017-07-23] MEDS: Nicotine 14 MG PATCH TD SCH (20:29)
[2017-07-23 20:46] LABS: CKMB 2.5 ng/mL (0-6.6); Troponin I 0.026 ng/mL (< 0.028)
--- NOTE | 2017-07-24 00:10 | CON ---
DATE OF CONSULTATION: 07/23/2017. REASON FOR CONSULTATION: Preoperative evaluation. HISTORY OF PRESENT ILLNESS: Mr. Pacheco is a very pleasant gentleman with history of coronary artery d isease we have asked to see for preoperative evaluation. The patient was admitted to the hospital here on 07/21/2017. He was found to have a lesion on his pe nis, which was aching and burning. Also, he was found to have anemia. Ultimately, it was found that he had colon cancer and will need surgery. The surgery is planned for next week. PAST MEDICAL HISTORY: He has history of coronary disease. He said he had "heart failure" in 1990, h e says a balloon angioplasty, he says he thinks about 5 years ago, but the records indicate it is pro bably more like 10 years ago. He may have had a cardiac catheterization by Dr. Govea. He was told th at he had lot of narrowing in the arteries, but it would take a lot of stents and it would not be janes ropriate to place stenting at that point. Unfortunately, those records are not available to me at th is time. The patient otherwise states he has been doing well from a cardiac standpoint. No chest pa in or pressure. No shortness of breath. Past history of diabetes. SOCIAL HISTORY: Smokes half pack of cigarettes per day. FAMILY HISTORY: Positive for colon cancer in sister. ALLERGIES: None known. MEDICATIONS: 1. Aspirin. 2. Lisinopril. 3. Isosorbide. 4. Insulin. PHYSICAL EXAMINATION: GENERAL: This is a pleasant elderly gentleman in no distress. He is in the company of his family an d they are very supportive of him. VITAL SIGNS: Blood pressure 170/80, pulse 90. HEENT: Eyes, sclerae nonicteric. Mouth, mucous membranes moist. NECK: Supple. No lymphadenopathy. LUNGS: Clear. No wheezing, rales, or rhonchi. CARDIAC: Normal S1, normal S2. There is no murmur, rub, or gallop. ABDOMEN: Soft, nontender. No hepatosplenomegaly. EXTREMITIES: Warm, dry. No clubbing or cyanosis. There is no edema. PERTINENT LABORATORY DATA: Hemoglobin 7.8. PSA is 32. EKG, sinus rhythm, LVH by voltage. ASSESSMENT: 1. Coronary disease according to the patient. 2. History of heart failure, but no evidence of heart failure at the present time. 3. Colon cancer. 4. Anemia. PLAN: 1. Check iron levels. May benefit from intravenous iron preoperatively. 2. Echocardiogram and stress testing to further risk stratify tomorrow.
[2017-07-24 05:17] LABS: #Eosinphils 0.1 thou/uL (0.0-0.7); #Lymphocytes 1.4 thou/uL (1.20-3.40); #Monocytes 0.8 thou/uL (0.11-0.59); #Neutrophils 6.1 thou/uL (1.40-6.50); %Basophils 0.1 % (0.0-1.0); %Eosinophils 1.5 % (0.0-10.0); %Lymphocytes 16.4 % (21.0-51.0); %Monocytes 9.8 % (0.0-10.0); %Neutrophils 72.2 % (42.0-75.0); Hemoglobin 7.3 g/dL (14.0-18.0); Mean Corpuscular HGB CONC 28.8 g/dL (32.0-36.0); Mean Corpuscular Volume 66.1 fl (80.0-94.0); Mean Platelet Volume 11.6 fL (7.4-10.4); Platelet Count 289 thou/uL (130-400); RBC Distribution Width 19.6 % (11.5-14.5); Red Blood Cell (RBC) Count 3.83 mill/uL (4.70-6.10); White Blood Cell (WBC) Count 8.4 thou/uL (4.8-10.8)
[2017-07-24 05:27] LABS: Iron 13 ug/dL (65-175); Iron Binding Capacity, Total 333 mcg/dL (261-462)
[2017-07-24 05:28] LABS: Anion Gap 10 mmol/L (10-20); BUN (Urea Nitrogen) 11 mg/dL (8.4-25.7); Calc. Creatinine Clearance 75 mL/min (70-130); Calcium 9.1 mg/dL (7.8-10.44); Carbon Dioxide 25 mmol/L (23-31); Chloride 106 mmol/L (98-107); Estimated GFR-MDRD 86; Glucose 188 mg/dL (83-110); Iron 12 ug/dL (65-175); Sodium 137 mmol/L (136-145)
--- NOTE | 2017-07-24 05:49 | CON ---
DATE OF CONSULT: 07/23/2017 HISTORY OF PRESENT ILLNESS: Kirby Pacheco is a 76-year-old black male who lives with his brother in [place]. The patient presented to the emergency room with penile complaints, seen by nadiya Ron hought to be more yeast infection, treated with Diflucan and local creams, but on admission, the charmaine ent was noted to be anemic, hemoglobin is 6.9. He had microcytic indices. Dr. Douglas performed upper endoscopy that was normal yesterday and colonoscopy today revealed a circumferential near obstructive distal transverse colon cancer. Dr. Parks performed a colonoscopy. The patient reports he had a sis ter that of colon cancer. He has not had prior colonoscopy. He currently is active, taking car e of cattle, animals in the yard. He denies any chest pain or pressure. He does smoke half pack a d ay and does have diabetes mellitus type 2. ALLERGIES: None. TOBACCO: One-half pack per day. ALCOHOL: Socially. HOME MEDICATIONS: Zocor 40 mg at bedtime, Nitrostat p.r.n. Naftifine HCl cream as needed, Mobic 15 m g daily, isosorbide 30 mg daily, furosemide 20 mg daily, aspirin with caffeine, acetaminophen p.r.n. migraines, aspirin 81 mg a day, lisinopril 20 mg a day, insulin 12 units subcu b.i.d. PAST SURGICAL HISTORY: Noncontributory. PAST MEDICAL HISTORY: Diabetes mellitus, type 2, on insulin; hypertension. He reports more than 10 years ago he had an episode of congestive failure, but denies cardiac symptoms currently. He denies dyspnea. PHYSICAL EXAMINATION: VITAL SIGNS: 5 feet, 484 pounds, 31 BMI, 97.7, 95, 173/81. HEAD, EYES, EARS, NOSE, AND THROAT: Unremarkable. LUNGS: Clear to auscultation. CARDIAC: Regular rate and rhythm without murmur or gallop. ABDOMEN: Soft, nontender. EXTREMITIES: Unremarkable. No ankle edema. LABORATORY DATA: White count 8, hemoglobin 7.8 today, on admission hemoglobin 6.9. Sodium 139, pota ssium 4.5, BUN 10, creatinine 1.04, GFR 84, glucose 130. PSA 32. ASSESSMENT AND PLAN: 1. Transverse colon cancer, previous splenic flexure. This is high grade circumferential. Dr. Parks has ordered a CEA level and a CAT scan of the abdomen and pelvis. I have ordered a PA and lateral c hest x-ray, EKG and ask Dr. Olivia to see him for preoperative cardiac clearance due to cardiac risk factors of diabetes mellitus type 2, insulin-dependent, tobacco use. I have ordered an echocardiogra m. I have discussed with the patient and he does not want to have an operation in this hospitalizati on, he instead states he has not eaten in 4 days and understands he will have to redo his bowel prep for his colon surgery. He wishes to resume his diabetic diet tonight, complete his cardiac workup an d be discharged home and return for his surgery at a later date. I will talk to the patient's family tomorrow and arrange a future date for bowel prep, laparoscopic colon resection for colon cancer. W e will await workup including chest x-ray and CAT scan and CEA level. 2. Family history of colon cancer. 3. Type 2 diabetes mellitus. 4. Hypertension. 5. Tobacco abuse.
[2017-07-24] MEDS ORDERED: Lisinopril 20 MG TAB PO SCH (09:00)
[2017-07-24] MEDS ORDERED: Acetaminophen 1,000 MG in Premix Bag 1 BAG IVPB SCH (09:15)
--- NOTE | 2017-07-24 10:51 | PDOC.PN ---
- Subjective Encounter Start Date: 07/24/17 Encounter Start Time: 07:20 Pt seen for followup re: colon mass. No complaints today. - Objective Resuscitation Status: Resuscitation Status FULL:Full Resuscitation MAR Reviewed: Yes Vital Signs & Weight: Vital Signs (12 hours) Temp Pulse Resp BP Pulse Ox 07/24/17 07:42 98.6 F 94 20 123/76 98 07/24/17 04:00 99.1 F 102 H 18 124/83 99 07/24/17 01:41 99.1 F 100 18 170/73 H 100 Weight Admit Weight 184 lb 3.2 oz Weight 184 lb 3.2 oz Result Diagrams: 07/24/17 04:56 07/24/17 04:56 Additional Labs: Accuchecks 07/24/17 07/23/17 07/23/17 05:30 19:48 16:11 POC Glucose 190 H 185 H 96 07/23/17 11:33 POC Glucose 112 H Phys Exam - Physical Examination Obese HEENT: moist MMs Neck: supple Respiratory: clear to auscultation bilateral Cardiovascular: RRR Gastrointestinal: soft Neurological: moves all 4 limbs Psychiatric: normal affect Dx/Plan (1) Mass of colon Code(s): K63.9 - DISEASE OF INTESTINE, UNSPECIFIED Status: Acute (2) Anemia Code(s): D64.9 - ANEMIA, UNSPECIFIED Status: Acute (3) Penile lesion Code(s): N48.9 - DISORDER OF PENIS, UNSPECIFIED Status: Acute (4) Urinary tract infection Status: Acute (5) DM2 (diabetes mellitus, type 2) Status: Chronic - Plan out of bed/ambulate, DVT proph w/SCDs * . Pt found to have colon mass during colonoscopy yesterday, scheduled to have stress test for preop clearance today. Review of Systems - Review of Systems Respiratory: negative: Cough, Dry, Shortness of Breath, Hemoptysis, SOB with Excertion, Pleuritic Pain, Sputum, Wheezing Cardiovascular: negative: chest pain, palpitations, orthopnea, paroxysmal nocturnal dyspnea, edema, light headedness - Medications/Allergies Allergies/Adverse Reactions: Allergies Allergy/AdvReac Type Severity Reaction Status Date / Time No Known Allergies Allergy Verified 07/21/17 15:38 Medications: Current Medications Acetaminophen (Tylenol) 650 mg PO Q4H PRN PRN Reason: Headache/Fever or Pain Last Admin: 07/23/17 19:16 Dose: 650 mg Acetaminophen (Tylenol) 650 mg SC Q4H PRN PRN Reason: Headache/Fever or Pain Hydrocodone Bitart/Acetaminophen (Wendel 10/325) 1 tab PO Q4H PRN PRN Reason: Pain Bisacodyl (Dulcolax) 10 mg PO DAILYPRN PRN PRN Reason: Constipation Dextrose/Water (Dextrose 50%) 25 gm SLOW IVP PRN PRN PRN Reason: Hypoglycemia Fluconazole (Diflucan) 100 mg PO DAILY [facility] Last Admin: 07/23/17 08:37 Dose: 100 mg Glucagon (Glucagon) 1 mg IM PRN PRN PRN Reason: Hypoglycemia Hydralazine HCl (Apresoline) 10 mg SLOW IVP Q4H PRN PRN Reason: SBP > 180 Ceftriaxone Sodium 1 gm/ (Syringe 0.4 ml/ Sterile Water) 10 mls @ 120 mls/hr SLOW IVP 1400 [facility] Last Admin: 07/23/17 14:03 Dose: Not Given Dextrose/Water (D5w) 1,000 mls @ 0 mls/hr IV .Q0M PRN; As Directed PRN Reason: Hypoglycemia Acetaminophen 1,000 mg/ Device 100 mls @ 400 mls/hr IVPB 0915 [facility] Stop: 07/24/17 12:00 Insulin Human Lispro (Humalog) 0 units SC .MILD SLIDING SCALE PRN PRN Reason: Mild Correctional Scale Last Admin: 07/21/17 16:24 Dose: 6 unit Isosorbide Mononitrate (Imdur Er) 30 mg PO DAILY [facility] Lisinopril (Zestril) 20 mg PO DAILY [facility] Nicotine (Nicoderm Patch) 14 mg TD Q24HR [facility] Last Admin: 07/23/17 20:29 Dose: 14 mg Pantoprazole Sodium (Protonix) 40 mg PO DAILY [facility] Last Admin: 07/23/17 08:37 Dose: 40 mg
--- NOTE | 2017-07-24 12:42 | PRG ---
DATE OF SERVICE: 07/24/2017 GASTROINTESTINAL INPATIENT DAILY PROGRESS NOTE SUBJECTIVE: I missed Mr. Pacheco today as he was down in nuclear medicine getting a preoperative cardi ac stress testing done. He was seen by Dr. Nelson and plan is to take him to surgery perhaps on an o utpatient basis following cardiac risk stratification. He had a CT scan done yesterday, which demons trates an apple core lesion in the region of the splenic flexure corresponding to the mass demonstrat ed on colonoscopy earlier in the day, indeterminate tiny foci in the mid right lobe of the liver. OBJECTIVE: VITAL SIGNS: Temperature 98.6, pulse 94, blood pressure 123/76, 98% oxygen saturation on room air. LABORATORY STUDIES: Sodium 137, potassium 4.0, BUN 11, creatinine 1.02, glucose 190. Iron 13, TIBC 333. Ferritin 9.09. BNP 111.2, hemoglobin 7.3. WBC 8.4, platelets 289. Transverse colon mass biop sies pending. Gastric biopsies demonstrating chronic gastritis, negative for H. pylori. ASSESSMENT AND PLAN: 1. Iron deficiency anemia, appears secondary to chronic blood loss from colon mass. 2. Transverse colon mass, likely malignant, with biopsies pending. 3. Chronic gastritis, mild. Agree with Dr. Nelson's surgical plan. No further recommendations from a gastrointestinal perspective at this time. Assuming final pathology confirms malignancy, the charmaine ent will need oncology consultation or referral as well. I will plan to see him back in clinic after his surgery to see how he is doing and we will likely plan on repeat colonoscopy at one year interva l for surveillance. GI will sign off at this time, but please call back any time with questions or concerns.
[2017-07-24] MEDS ORDERED: ADENOSINE 60 MG/20 ML VIAL ONE (12:59)
[2017-07-24] MEDS: cefTRIAXone\\ROCEPHIN 1 GM, Syringe 0.4 ML in Sterile Water 9.6 ML SLOW IVP SCH (14:05)
--- NOTE | 2017-07-24 14:45 | NM ---
CARDIAC SPECT: CLINICAL HISTORY: 76-year-old black male with chest pain, coronary artery disease, CHF, hypertension, dyslipidemia, smo ker, and diabetes mellitus. TECHNIQUE: A myocardial perfusion scan was performed using the single isotope one day protocol with technetium-9 9m sestamibi. 10 mCi were injected intravenously for the rest exam followed by 31 mCi for the stress exam. Pharmacologic stress with Adenosine was monitored and interpreted by Zachary Murphy NP. FINDINGS: Fairly homogeneous tracer distribution is seen in the myocardial segments on stress and rest images w ithout fixed or reversible defects. GATED SPECT LVEF: 54%. WALL MOTION EXAM: Normal. IMPRESSION: No evidence of reversible ischemia. POS: [facility]
--- NOTE | 2017-07-24 16:37 | PRG ---
DATE OF SERVICE: 07/24/2017 SUBJECTIVE: Mr. Pacheco is doing well today. His CT scan of abdomen and pelvis and chest x-ray did no t reveal any evidence of metastatic disease. His preoperative CEA level was normal. Cardiac nuclear medicine stress test was normal with an EF of 55% without reversible ischemia. Echocardiogram is pe nding. The patient is tolerating his diet. The patient's surgery is scheduled in the near future, s cheduled specifically on 08/06/2017 and on 08/05/2017, patient will be on clear liquids, blank e a bowel prep, both cleansing and antibiotic bowel prep and then report for surgery in the morning o f surgery, 08/06/2017, 0600 at the operating room. We will call her in the night before t elling what time to be there. We will check a CBC type and screen and plan laparoscopic transverse c olon resection for nonmetastatic colon cancer. Expect hospitalization at the time to be about 2-3 da ys. Risk of infection, bleeding, reoperation, anastomotic leakage, discussed with him. He consents. He can be discharged home today on his diabetic diet from our standpoint. My office has called iro n and vitamins for him to take, iron twice a day with meals. He was given information for the surger y, which will take place on 08/06/2017. OBJECTIVE: LUNGS: Clear to auscultation. CARDIAC: Regular rate and rhythm without murmur or gallop. ABDOMEN: Soft, nontender.
[2017-07-24 16:54] VITALS: BP 169/76; TEMP 98.5
[2017-07-24] MEDS: Fluconazole 100 MG TAB PO SCH (18:56)
--- NOTE | 2017-07-24 22:01 | EKG ---
Test Reason : Blood Pressure : / mmHG Vent. Rate : 077 BPM Atrial Rate : 077 BPM P-R Int : 132 ms QRS Dur : 086 ms QT Int : 386 ms P-R-T Axes : 034 -25 040 degrees QTc Int : 436 ms Normal sinus rhythm Moderate voltage criteria for LVH, may be normal variant Borderline ECG When compared with ECG of 25-SEP-2010 03:35, Fusion complexes are no longer Present Confirmed by JAY MCKEON ([id number]) on 07/24/2017 10:01:31 PM Referred By: BIENVENIDO Confirmed By:JAY MCKEON
--- NOTE | 2017-07-24 23:25 | DIS ---
DATE OF ADMISSION: 07/21/2017 DATE OF DISCHARGE: 07/24/2017 PRIMARY CARE PHYSICIAN: Zay Mayo D.O. DISCHARGE DIAGNOSES: 1. Scrotal erythema. 2. Urinary tract infection with Klebsiella pneumonia, pansensitive. 3. Colon mass. 4. Iron deficiency anemia. CONDITION OF PATIENT AT THE TIME OF DISCHARGE: Stable. I assessed Mr. Pacheco on the day of discharge . He denies any chest pain or shortness of breath. Vital signs are stable. S1 and S2 are heard, re gular. Lungs are clear to auscultation bilaterally. CONSULTATIONS DURING THIS HOSPITALIZATION: Gastroenterology, Dr. Finn Douglas; Cardiology, Dr. Olivia; General Surgery, Dr. Nelson; and Urology, Dr. Tello. DISCHARGE MEDICATIONS: Macrobid 100 mg 2 times a day for 1 week, fluconazole 100 mg daily for 12 mor e days, aspirin 81 mg daily, Lasix 20 mg daily, Lantus insulin 12 units 2 times a day, Imdur 30 mg da odalys, lisinopril 20 mg daily, nitroglycerin p.r.n., and Zocor 40 mg in the evening. HOSPITAL COURSE: Mr. Pacheco is a pleasant 76-year-old gentleman who was admitted to [facility] on 07/21/2017 for iron deficiency anemia. He received packed RBC transfusion. He a lso had scrotal edema and penile pain. He was seen by Urology Service. He was continued on fluconaz ole. The erythema does not improve, he will likely need a dermatologic evaluation through his primar care provider's office. Gastroenterology service was consulted because of iron deficiency anemia. He had EGD on 07/22/2017, which showed small inlet patch in the upper esophagus at 23 cm, nonbleeding, mild erosive gastropathy in the antrum, biopsied, a few small duodenal AV malformations, nonbleeding. He had poor bowel prep aration. Colonoscopy was not successful. He has been recommended daily PPI and to avoid nonsteroida ls. He went on to have colonoscopy on 07/23/2017. He was found to have a transverse colon mass, likely m alignant and two small colon polyps, status post polypectomy. General Surgery service was consulted. They planned to operate on him on 08/05/2017. A Cardiology service was consulted for preoperative evaluation. He had a nuclear stress test on 07/24/2017, which was normal. On the day of discharge, he has white count of 8400, hemoglobin 7.3, platelet count 289,000, normal e lectrolytes and normal creatinine. His CEA level was 3.80. Many thanks for allowing me to participate in your patient's care. Please feel free to contact me wi th any questions or concerns. As noted, he also has a urinary tract infection for which he was treated with ceftriaxone in the hosp ital and is being started on Macrobid at the time of discharge. DISCHARGE DESTINATION: Home. TOTAL AMOUNT OF TIME SPENT COORDINATING THIS DISCHARGE: 38 minutes.
== END 2017-07-24 19:26 | disposition home or self-care (01) | DRG 812 ==
LOC: ERS 09:50 → T4-A 13:11
PROVIDERS: ADMIT Internal Medicine; ATTEND Internal Medicine
PROC: 30233N1 Transfusion of Nonautologous Red Blood Cells into Peripheral Vein, Percutaneous Approach (ICD-10-PCS; principal; 2017-07-21)
PROC: 0DB68ZX Excision of Stomach, Via Natural or Artificial Opening Endoscopic, Diagnostic (ICD-10-PCS; 2017-07-22)
PROC: 0DB78ZX Excision of Stomach, Pylorus, Via Natural or Artificial Opening Endoscopic, Diagnostic (ICD-10-PCS; 2017-07-22)
PROC: 0DJD8ZZ Inspection of Lower Intestinal Tract, Via Natural or Artificial Opening Endoscopic (ICD-10-PCS; 2017-07-22)
PROC: 0DBL8ZX Excision of Transverse Colon, Via Natural or Artificial Opening Endoscopic, Diagnostic (ICD-10-PCS; 2017-07-23)
PROC: 0DBM8ZZ Excision of Descending Colon, Via Natural or Artificial Opening Endoscopic (ICD-10-PCS; 2017-07-23)
PROC: 0DBP8ZZ Excision of Rectum, Via Natural or Artificial Opening Endoscopic (ICD-10-PCS; 2017-07-23)
DX: D50.0 Iron deficiency anemia secondary to blood loss (chronic) (principal); E11.65 Type 2 diabetes mellitus with hyperglycemia; B96.1 Klebsiella pneumoniae [K. pneumoniae] as the cause of diseases classified elsewhere; E87.1 Hypo-osmolality and hyponatremia; C18.4 Malignant neoplasm of transverse colon; E78.5 Hyperlipidemia, unspecified; N39.0 Urinary tract infection, site not specified; F17.210 Nicotine dependence, cigarettes, uncomplicated; K29.50 Unspecified chronic gastritis without bleeding; I10 Essential (primary) hypertension; I25.10 Atherosclerotic heart disease of native coronary artery without angina pectoris; K31.819 Angiodysplasia of stomach and duodenum without bleeding; N50.89 Other specified disorders of the male genital organs; N48.89 Other specified disorders of penis; K63.5 Polyp of colon; Z80.0 Family history of malignant neoplasm of digestive organs; R63.4 Abnormal weight loss; Z68.31 Body mass index [BMI] 31.0-31.9, adult; R97.20 Elevated prostate specific antigen [PSA]; K64.4 Residual hemorrhoidal skin tags; Z79.4 Long term (current) use of insulin; Z80.42 Family history of malignant neoplasm of prostate
CPT/HCPCS: 36415; 36416; 36430; 71046; 74177; 78452; 80048; 82378; 82553; 82607; 82728; 82746; 83540; 83550; 83880; 84439; 84443; 84481; 84484; 85025; 85060; 86850; 86900; 86901; 87040; 88305; 88312; 90471; 90682; 93005; 93010; 93017; 93306; 96365; 96375; A4216; A9500; G0008; G0103; J0131; J0153; J0696; J1200; J2001; J2704; J3010; J3370; P9016; Q2036

== ENCOUNTER 2017-08-06 09:40 | Inpatient (IN) | payer MEDICARE ==
[2017-08-07 16:02] VITALS: BMI 30.4
[2017-08-11] MEDS ORDERED: Tranexamic Acid 1,000 MG/100 ML BAG ONE (07:07)
[2017-08-11] MEDS ORDERED: cefOXitin 2 GM, Syringe 1 ML in Sterile Water 10 ML SLOW IVP SCH (08:00)
[2017-08-11] MEDS ORDERED: Insulin Regular 100 units/100 ml in NS IVPB ONE (08:00)
[2017-08-11] MEDS ORDERED: Midazolam HCl 2 mg/2 ml Vial ONE (08:10)
[2017-08-11] MEDS ORDERED: Fentanyl 100 MCG/2 ML VIAL ONE ×3 (08:10→14:34)
[2017-08-11] MEDS ORDERED: Ketorolac Tromethamine 30 MG/ML VIAL ONE (08:10)
[2017-08-11] MEDS ORDERED: HYDROmorphone 0.5 MG/0.5 ML SYRINGE ONE (08:47)
[2017-08-11] MEDS ORDERED: Albumin 5% 500 ML ONE (08:47)
[2017-08-11] MEDS ORDERED: Lidocaine 2% w/Epinephrine 1:200K 20 ML VIAL ONE (08:50)
[2017-08-11] MEDS ORDERED: Bupivacaine 0.25% HCL 30 ML VIAL ONE (08:50)
[2017-08-11] MEDS ORDERED: Lidocaine 1% (PF) 30 ML VIAL ONE (09:00)
[2017-08-11] MEDS ORDERED: cefOXitin 2 GM VIAL ONE (11:28)
[2017-08-11] MEDS ORDERED: hydrALAZINE 20 MG/ML VIAL SLOW IVP PRN (12:08)
[2017-08-11] MEDS ORDERED: Morphine 4 MG/ML Carpuject SLOW IVP PRN (12:08)
[2017-08-11] MEDS ORDERED: Insulin Regular 300 UNITS/3 ML VIAL SC PRN (12:08)
[2017-08-11] MEDS ORDERED: Ondansetron HCl/PF 4 MG/2 ML Vial IVP PRN (12:20)
[2017-08-11] MEDS ORDERED: HYDROmorphone 2 MG/ML VIAL SLOW IVP PRN (12:20)
[2017-08-11] MEDS ORDERED: Promethazine HCl 25 MG/ML VIAL IM PRN (12:20)
[2017-08-11] MEDS ORDERED: Promethazine HCl 25 MG/ML VIAL SLOW IVP PRN (12:20)
--- NOTE | 2017-08-11 12:53 | OP ---
DATE OF OPERATION: 08/11/2017 PREOPERATIVE DIAGNOSIS: Splenic flexure colon cancer. POSTOPERATIVE DIAGNOSIS: Distal transverse colon cancer. PROCEDURE: Laparoscopic mobilization of the splenic flexure, left colon, transverse colon. Laparosc opic mobilization of the right colon and distal ileum with laparoscopic right hemicolectomy, transver se colon with ileal left colonic staple anastomosis. SURGEON: Dr. Panda Nelson ANESTHESIA: General, tap block. ESTIMATED BLOOD LOSS: 25 mL. BLOOD TRANSFUSED: None. PROCEDURE IN DETAIL: Patient taken to the operating room where under general anesthesia after TAP bl ock in the dorsal lithotomy position, the abdomen was prepared with ChloraPrep. Perineum, buttocks p repared with Betadine, draped in routine fashion. A periumbilical incision made and pneumoperitoneum to 15 mmHg obtained with Veress needle, replacing it with a 5 port. Video laparoscope inserted. Ri ght upper quadrant and right lateral mid abdominal incision made and a 5 port placed. Left lower zay drant incision and left upper quadrant incision made and 5 ports placed. We first begun on the patie nt's right side mobilized and the left colon, splenic flexure, distal transverse colon taken down the gastrocolic ligament from the transverse colon towards the splenic flexure, mobilized the splenic fl exure and descending colon. We then moved to the patient's left side completed division of the gastr ocolic ligament from the transverse colon on the right and the hepatic flexure, mobilized the hepatic flexure and right colon and terminal ileum. Duodenum identified and kept free of harm as the mesent lisa of the transverse colon dissected free and the tumor noted just midway between the mid transverse colon, and the splenic flexure. The middle colic vessels divided with ROBERTO white load stapler laparo scopically. At this point, an incision was made in the upper midline abdomen and the wound protector inserted and the colon brought out identifying and palpating the tumor and dividing the transverse c olon approximately 6 inches beyond the tumor with the ROBERTO blue load stapler. The right colon was the n brought out of the wound and the remainder of the mesentery adjacent to the right colon divided bet ween clamps and LigaSure using 2-0 silk ties were necessary to the terminal 6 inches of ileum where t he ileum was divided with ROBERTO stapler and the ileocolonic anastomosis created with a fire of the ROBERTO 60 blue load stapler and the common defect closed with another 2 fires of the ROBERTO blue load stapler. Once this was completed, good anastomosis was palpated and seromuscular sutures of 3-0 silk applied. The colon was oriented correctly, mesenteric was not closed. As sponge, needle, and instrument cou nts were correct. We changed our gloves and gowns. As the wound had been properly protected and the wound irrigated and then fascia closed with continuous suture of #1 PDS. Skin and subcutaneous tiss ues irrigated, skin approximated with duarte. All laparoscopic wounds approximated with duarte. A 12 mm port site with a stapler was applied and the right lateral mid abdomen and was closed with 0 V icryl GraNee needle. Patient tolerated the procedure well. DermaGlue applied.
[2017-08-11] MEDS ORDERED: Bupivacaine HCl 0.5%/Epinephrine 1:200,000/PF 30 ml Vial ONE (13:41)
[2017-08-11] MEDS ORDERED: Glycopyrrolate 0.2 MG/ML 5 ML SYRINGE ONE (13:50)
[2017-08-11] MEDS ORDERED: Ondansetron HCl/PF 4 MG/2 ML Vial ONE (13:50)
[2017-08-11] MEDS ORDERED: Propofol 200 MG/20 ML VIAL ONE (13:50)
[2017-08-11] MEDS ORDERED: Lidocaine 1% PF 5 ML VIAL ONE (13:50)
[2017-08-11] MEDS ORDERED: PHENYLEPHRINE-NS 100 MCG/ML 10 ML SYRINGE ONE (13:50)
[2017-08-11] MEDS ORDERED: hydrALAZINE 20 MG/ML VIAL ONE (14:30)
[2017-08-11] MEDS ORDERED: Lisinopril 10 MG TAB PO SCH (15:15)
[2017-08-11] MEDS ORDERED: Dextrose 5% in Water 1,000 ML IV PRN (15:46)
[2017-08-11] MEDS ORDERED: Dextrose 50% Abboject 50 ML SYRINGE IVP PRN (15:46)
[2017-08-11] MEDS: Ondansetron HCl/PF 4 MG/2 ML Vial IVP PRN (16:09)
[2017-08-11] MEDS: Acetaminophen 1,000 MG in Premix Bag 1 BAG IVPB SCH (17:35)
[2017-08-11] MEDS: Ketorolac Tromethamine 30 MG/ML VIAL IVP SCH (17:45)
[2017-08-11] MEDS: Insulin Regular 300 UNITS/3 ML VIAL SC PRN (18:34)
[2017-08-11] MEDS: 1/2 NS w/KCL 20 mEq 1,000 ML IV SCH ×2 (19:35→21:16)
[2017-08-11] MEDS ORDERED: Famotidine/PF 20 mg/2ml Vial SLOW IVP SCH (21:00)
[2017-08-11] MEDS: Famotidine 20 MG TAB PO SCH (21:16)
[2017-08-11] MEDS: Enoxaparin Sodium 40 MG/0.4 ML SYRINGE SC SCH (21:17)
[2017-08-11] MEDS: Clotrimazole/Betamethasone Cream 45 GM TUBE TOP SCH (21:17)
[2017-08-12] MEDS: Acetaminophen 1,000 MG in Premix Bag 1 BAG IVPB SCH ×3 (00:31→12:40)
[2017-08-12] MEDS: Ketorolac Tromethamine 30 MG/ML VIAL IVP SCH ×4 (00:31→18:49)
[2017-08-12 04:48] LABS: #Eosinphils 0.1 thou/uL (0.0-0.7); #Lymphocytes 1.3 thou/uL (1.20-3.40); #Monocytes 0.7 thou/uL (0.11-0.59); #Neutrophils 7.4 thou/uL (1.40-6.50); %Eosinophils 0.7 % (0.0-10.0); %Lymphocytes 13.6 % (21.0-51.0); %Monocytes 7.8 % (0.0-10.0); Hemoglobin 6.5 g/dL (14.0-18.0); Mean Corpuscular HGB CONC 27.7 g/dL (32.0-36.0); Mean Corpuscular Hemoglobin 20.2 pg (27.0-31.0); Mean Platelet Volume 10.3 fL (7.4-10.4); Platelet Count 391 thou/uL (130-400); RBC Distribution Width 23.8 % (11.5-14.5); Red Blood Cell (RBC) Count 3.23 mill/uL (4.70-6.10); White Blood Cell (WBC) Count 9.5 thou/uL (4.8-10.8)
[2017-08-12 05:07] LABS: Anion Gap 11 mmol/L (10-20); BUN (Urea Nitrogen) 12 mg/dL (8.4-25.7); Calc. Creatinine Clearance 80 mL/min (70-130); Carbon Dioxide 25 mmol/L (23-31); Chloride 106 mmol/L (98-107); Estimated GFR-MDRD 90; Glucose 133 mg/dL (83-110); Potassium 4.5 mmol/L (3.5-5.1); Sodium 137 mmol/L (136-145)
[2017-08-12] MEDS: 1/2 NS w/KCL 20 mEq 1,000 ML IV SCH (05:42)
[2017-08-12] MEDS: Lisinopril 10 MG TAB PO SCH (08:03)
[2017-08-12] MEDS: Famotidine 20 MG TAB PO SCH ×2 (08:04→20:13)
[2017-08-12] MEDS ORDERED: Ibuprofen 600 MG TAB PO PRN (09:00)
[2017-08-12] MEDS ORDERED: traMADol HCl 50 MG TAB PO PRN (09:00)
[2017-08-12] MEDS ORDERED: Acetaminophen 500 MG TAB PO SCH (09:00)
--- NOTE | 2017-08-12 09:12 | PRG ---
DATE OF SERVICE: 08/12/2017 Mr. Pacheco is doing well today. He is not having nausea or vomiting. He has started full liquids thi s morning. He has eaten most of his meal. PHYSICAL EXAMINATION: VITAL SIGNS: Temperature 97.6 degrees, 80, 16, 133/69. LUNGS: Clear to auscultation. CARDIAC: Regular rate and rhythm without murmur or gallop. ABDOMEN: Soft, bowel sounds present, nontender. Surgical wound looks good. He has not passed any f latus or stool yet. Postoperative day 1. LABORATORY: Preoperative hemoglobin 7.6 to 7.3, postoperatively 6.5. He was typed and screened, but not transfused. Basic metabolic profile is normal. Accu-Cheks 125 to 200. ASSESSMENT AND PLAN: Transverse colon cancer, status post laparoscopic right colectomy. Continue sl owly advancing his diet. Would saline lock him today. Continue full liquids today. Considering adv ance his diet later tonight or tomorrow pending tolerance. Await pathology. Resume home medications .
[2017-08-12] MEDS: traMADol HCl 50 MG TAB PO PRN ×2 (10:30→16:18)
[2017-08-12] MEDS: Clotrimazole/Betamethasone Cream 45 GM TUBE TOP SCH ×2 (12:40→20:14)
[2017-08-12] MEDS: Insulin Regular 300 UNITS/3 ML VIAL SC PRN (13:02)
[2017-08-12] MEDS: Enoxaparin Sodium 40 MG/0.4 ML SYRINGE SC SCH (20:13)
[2017-08-13] MEDS: Ketorolac Tromethamine 30 MG/ML VIAL IVP SCH ×3 (00:04→12:15)
[2017-08-13] MEDS: Insulin Regular 300 UNITS/3 ML VIAL SC PRN (06:30)
[2017-08-13 08:10] LABS: #Eosinphils 0.1 thou/uL (0.0-0.7); #Lymphocytes 1.2 thou/uL (1.20-3.40); #Monocytes 0.6 thou/uL (0.11-0.59); #Neutrophils 6.5 thou/uL (1.40-6.50); %Basophils 0.1 % (0.0-1.0); %Eosinophils 1.1 % (0.0-10.0); %Lymphocytes 13.9 % (21.0-51.0); %Monocytes 7.7 % (0.0-10.0); %Neutrophils 77.2 % (42.0-75.0); Hemoglobin 7.1 g/dL (14.0-18.0); Mean Corpuscular Hemoglobin 20.1 pg (27.0-31.0); Mean Corpuscular Volume 71.9 fl (80.0-94.0); Mean Platelet Volume 9.7 fL (7.4-10.4); Platelet Count 435 thou/uL (130-400); RBC Distribution Width 22.4 % (11.5-14.5); Red Blood Cell (RBC) Count 3.51 mill/uL (4.70-6.10); White Blood Cell (WBC) Count 8.4 thou/uL (4.8-10.8)
[2017-08-13 08:39] LABS: Hypochromia MODERATE=16-30 cells (100X) (0-5/hpf); MDiff Complete? YES; Microcytosis MODERATE=15-30 cells (100X) (0-5/hpf); PLT Morphology Comment Appears Increased; Polychromasia MODERATE = 3-4 cells (100X) (0-2/hpf); Target Cells SLIGHT = 2-5 cells (100X) (0-1/hpf)
[2017-08-13] MEDS: Lisinopril 10 MG TAB PO SCH (09:12)
[2017-08-13] MEDS: Famotidine 20 MG TAB PO SCH (09:12)
[2017-08-13] MEDS: Clotrimazole/Betamethasone Cream 45 GM TUBE TOP SCH (09:18)
[2017-08-13] MEDS: Ondansetron HCl/PF 4 MG/2 ML Vial IVP PRN (10:21)
[2017-08-13 12:42] VITALS: BP 167/81; TEMP 98.3
[2017-08-13] MEDS ORDERED: Acetaminophen 500 MG TAB PO PRN (13:45)
--- NOTE | 2017-08-13 13:55 | PRG ---
DATE OF SERVICE: 08/13/2017 Kirby Pacheco is doing well today. PHYSICAL EXAMINATION: VITAL SIGNS: Stable, afebrile 98.3, 100, 12 respiratory rate, 100/71. He is tolerating regular diet. He is having bowel movements, passing flatus. LUNGS: Clear to auscultation. CARDIAC: Regular rate and rhythm. No murmur or gallop. ABDOMEN: Soft, nontender. Pathology report is pending. Suspect T3 disease. ASSESSMENT AND PLAN: Status post laparoscopic extended right hemicolectomy with resection of the tra nsverse colon and ileocolic anastomosis. The patient will be discharged home at this time. Tylenol, Ultram p.r.n. pain. Follow up in my office next week and will arrange pathology followup.
--- NOTE | 2017-08-13 14:16 | DIS ---
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 He underwent a laparoscopic extended right colectomy with ileoc olic anastomosis. Postoperatively, he tolerated his diet and he is discharged home with Tylenol, Ult vianey and resume his home medications which consist of Protonix, lisinopril, isosorbide, insulin, furos emide, ibuprofen p.r.n., tramadol p.r.n., Tylenol. Postoperatively, he tolerated his diet and has good bowel function. Pathology is pending. Suspect t ransmural disease and will arrange follow up Oncology on the same day he follows with me next week.
== END 2017-08-13 14:20 | disposition home or self-care (01) | DRG 331 ==
LOC: EDSTATUS 16:04 → SURG A 08-11 06:32
PROVIDERS: ADMIT Specialist; ATTEND Specialist
PROC: 0DTF4ZZ Resection of Right Large Intestine, Percutaneous Endoscopic Approach (ICD-10-PCS; principal; 2017-08-11)
PROC: 3E0T3BZ Introduction of Anesthetic Agent into Peripheral Nerves and Plexi, Percutaneous Approach (ICD-10-PCS; 2017-08-11)
DX: C18.4 Malignant neoplasm of transverse colon (principal); D64.9 Anemia, unspecified; E11.9 Type 2 diabetes mellitus without complications; F17.210 Nicotine dependence, cigarettes, uncomplicated; I10 Essential (primary) hypertension; Z79.82 Long term (current) use of aspirin; Z79.4 Long term (current) use of insulin
CPT/HCPCS: 36415; 36416; 80048; 85025; 88309; 88313; A4216; J0131; J0360; J0670; J0694; J1170; J1650; J1815; J1885; J2001; J2250; J2270; J2405; J2704; J3010; J7050; P9045; S0020; S0028

== ENCOUNTER 2017-08-07 13:26 | Outpatient (CLI) | payer MEDICARE ==
[2017-08-07 16:08] LABS: Hemoglobin A1c 8.4 % (4.0-6.0)
[2017-08-07 16:13] LABS: #Eosinphils 0.3 thou/uL (0.0-0.7); #Lymphocytes 2.2 thou/uL (1.20-3.40); #Neutrophils 7.8 thou/uL (1.40-6.50); %Basophils 0.1 % (0.0-1.0); %Eosinophils 2.2 % (0.0-10.0); %Lymphocytes 19.7 % (21.0-51.0); %Neutrophils 68.9 % (42.0-75.0); Anisocytosis MODERATE=16-30 cells (100X) (0-5/hpf); Elliptocytes SLIGHT = 2-5 cells (100X) (0-1/hpf); Hemoglobin 7.6 g/dL (14.0-18.0); Hypochromia SLIGHT = 6-15 cells (100X) (0-5/hpf); Large Platelets SLIGHT; MDiff Complete? YES; Mean Corpuscular HGB CONC 27.7 g/dL (32.0-36.0); Mean Corpuscular Hemoglobin 19.8 pg (27.0-31.0); Mean Corpuscular Volume 71.3 fl (80.0-94.0); Mean Platelet Volume 9.8 fL (7.4-10.4); Microcytosis SLIGHT = 6-15 cells (100X) (0-5/hpf); Ovalocytes SLIGHT = 2-5 cells (100X) (0-1/hpf); PLT Morphology Comment Appears Increased; Platelet Count 436 thou/uL (130-400); Polychromasia MODERATE = 3-4 cells (100X) (0-2/hpf); RBC Distribution Width 23.5 % (11.5-14.5); Red Blood Cell (RBC) Count 3.86 mill/uL (4.70-6.10); Schistocytes SLIGHT = 2-5 cells (100X) (0-1/hpf); Spherocytes SLIGHT = 1-5 cells (100X) (None Seen); Target Cells SLIGHT = 2-5 cells (100X) (0-1/hpf); White Blood Cell (WBC) Count 11.3 thou/uL (4.8-10.8)
[2017-08-07 16:23] LABS: Anion Gap 9 mmol/L (10-20); BUN (Urea Nitrogen) 6 mg/dL (8.4-25.7); Calc. Creatinine Clearance 0 mL/min (70-130); Calcium 9.4 mg/dL (7.8-10.44); Carbon Dioxide 30 mmol/L (23-31); Chloride 104 mmol/L (98-107); Estimated GFR-MDRD 90; Glucose 176 mg/dL (83-110); Potassium 4.2 mmol/L (3.5-5.1); Sodium 139 mmol/L (136-145)
--- NOTE | 2017-08-08 13:20 | EKG ---
Test Reason : Blood Pressure : / mmHG Vent. Rate : 091 BPM Atrial Rate : 091 BPM P-R Int : 132 ms QRS Dur : 082 ms QT Int : 380 ms P-R-T Axes : 058 -27 -46 degrees QTc Int : 467 ms Normal sinus rhythm Moderate voltage criteria for LVH, may be normal variant Nonspecific ST abnormality Abnormal ECG Confirmed by AMADA ISSA ([id number]) on 08/08/2017 1:19:42 PM Referred By: BIENVENIDO Confirmed By:AMADA ISSA
== END 2017-08-07 13:27 | disposition home or self-care (01) ==
LOC: LABBT 13:26
PROVIDERS: ATTEND Specialist
DX: Z01.818 Encounter for other preprocedural examination (principal); C18.9 Malignant neoplasm of colon, unspecified
CPT/HCPCS: 80048; 83036; 85025; 86850; 86900; 86901; 93005; 93010

== ENCOUNTER 2017-08-15 13:12 | Inpatient (IN) | payer MEDICARE ==
[2017-08-15 13:59] LABS: Hemoglobin 8.3 g/dL (14.0-18.0); Mean Corpuscular HGB CONC 29.7 g/dL (32.0-36.0); Mean Corpuscular Hemoglobin 20.7 pg (27.0-31.0); Mean Corpuscular Volume 69.7 fl (80.0-94.0); Mean Platelet Volume 9.5 fL (7.4-10.4); Platelet Count 470 thou/uL (130-400); RBC Distribution Width 22.8 % (11.5-14.5); Red Blood Cell (RBC) Count 3.99 mill/uL (4.70-6.10); White Blood Cell (WBC) Count 6.5 thou/uL (4.8-10.8)
[2017-08-15 14:19] LABS: ALT (SGPT) 16 U/L (8-55); AST (SGOT) 12 U/L (5-34); Albumin 3.6 g/dL (3.4-4.8); Alkaline Phosphatase 94 U/L (40-150); Anion Gap 14 mmol/L (10-20); BUN (Urea Nitrogen) 17 mg/dL (8.4-25.7); Bilirubin, Total 0.5 mg/dL (0.2-1.2); Calc. Creatinine Clearance 0 mL/min (70-130); Calcium 10.1 mg/dL (7.8-10.44); Carbon Dioxide 28 mmol/L (23-31); Chloride 99 mmol/L (98-107); Estimated GFR-MDRD 88; Globulin 3.5 g/dL (2.4-3.5); Glucose 149 mg/dL (83-110); Potassium 4.5 mmol/L (3.5-5.1); Protein, Total 7.1 g/dL (5.8-8.1); Sodium 136 mmol/L (136-145)
[2017-08-15 14:23] LABS: Anisocytosis MODERATE=16-30 cells (100X) (0-5/hpf); Band 2 % (5-11); Hypochromia SLIGHT = 6-15 cells (100X) (0-5/hpf); Lymphocytes 18 % (21-51); MDiff Complete? YES; Microcytosis SLIGHT = 6-15 cells (100X) (0-5/hpf); Monocytes 10 % (0-10); Neutrophil 68 % (42-75); PLT Morphology Comment Appears Increased; Reactive Lymphocytes 2 % (0-10)
[2017-08-15 14:30] VITALS: BMI 28.3
[2017-08-15] MEDS ORDERED: Prevnar 13-Val Conj/PF 0.5 ML SYRINGE IM ONE (14:45)
[2017-08-15] MEDS: Lactated Ringer's 1,000 ML IV SCH ×4 (15:00→19:40)
--- NOTE | 2017-08-15 15:44 | RAD ---
FRONTAL RADIOGRAPH CHEST UPRIGHT AND SUPINE IMAGING OF ABDOMEN AND PELVIS: DATE: 08/15/17. COMPARISON: None. HISTORY: Postoperative patient with dehydration and vomiting. FINDINGS: Frontal radiograph chest demonstrates no pneumothorax, pleural fluid, focal consolidation, or alveola r edema. Heart and mediastinal contours are grossly unremarkable. Small volume free intraperitoneal air is noted beneath the right and the left hemidiaphragm. There are numerous gas-filled dilated loops of small bowel seen throughout the abdomen/pelvis with ai r fluid levels noted on upright imaging. There is a paucity of bowel gas seen distally. No acute os seous abnormality. IMPRESSION: Free intraperitoneal air. Dilated small bowel seen throughout the abdomen/pelvis with numerous air f luid levels. Findings suggest ileus and/or high-grade small bowel obstruction. Results called to Dr. Nelson at approximately 3:25 p.m. 08/15/17. CODE GUDELIA POS: [facility]
[2017-08-15] MEDS ORDERED: Acetaminophen 1,000 MG in Premix Bag 1 BAG IVPB SCH (16:00)
[2017-08-15] MEDS ORDERED: Acetaminophen 1,000 MG in Premix Bag 1 BAG IVPB PRN ×2 (16:00→22:00)
[2017-08-15] MEDS ORDERED: Ketorolac Tromethamine 30 MG/ML VIAL IVP PRN (16:00)
[2017-08-15] MEDS ORDERED: Ketorolac Tromethamine 30 MG/ML VIAL IVP SCH (16:00)
[2017-08-15] MEDS ORDERED: Insulin Regular 300 UNITS/3 ML VIAL SC PRN (16:03)
[2017-08-15] MEDS ORDERED: Dextrose 5% in Water 1,000 ML IV PRN (16:03)
[2017-08-15] MEDS ORDERED: Dextrose 50% Abboject 50 ML SYRINGE SLOW IVP PRN (16:03)
--- NOTE | 2017-08-15 18:36 | HP ---
HISTORY OF PRESENT ILLNESS: Mr. 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 He was discharged home on 08/13 passing flatus and a small amount of stool. He states that on going home on Friday, he felt slightly nauseated Friday night and began vomiting yesterday and this morning. He has not passed stool, but did pass flatus this morning. He last vomited this morning, it is now 5:43 p.m. He was brought to the hospital as he was feeling weak and comprehensive metabolic profile are normal. X-ray s of the abdomen revealed changes suggestive of an ileus. Abdomen is soft without bowel sounds. Whi te count is 6 and hemoglobin 8.3, which is baseline for him. He has not been transfused perioperativ juhi. He is slightly dehydrated as he was discharged with a hemoglobin of 7.1. PAST SURGICAL HISTORY: As above only. No other past surgical history. PAST MEDICAL HISTORY: Diabetes mellitus type 2, on insulin and hypertension. Cardiac stress test pr eoperatively was normal. TOBACCO: One half pack per day. ALCOHOL: Socially. ALLERGIES: None. MEDICATIONS: Zocor, Nitrostat, Mobic, isosorbide, furosemide, aspirin, caffeine, acetaminophen, jimbo nopril and insulin 12 units subcu b.i.d. PHYSICAL EXAMINATION: VITAL SIGNS: Height 5 foot 8 inches, weighs 196 pounds, 98.3 degrees, pulse 99, respirations 16 and blood pressure 167/84. LUNGS: Clear to auscultation. CARDIAC: Regular rate and rhythm without murmur. ABDOMEN: Soft, mildly tympanitic. No bowel sounds audible. No guarding or rebound. Surgical incis ions look good. EXTREMITIES: Unremarkable. LABORATORY DATA: White count 6.5 and hemoglobin 8.3. Basic metabolic profile is normal. Glucose 14 9. ASSESSMENT AND PLAN: Ileus postoperatively. Since he has not had a bowel movement postoperatively, in addition, we will leave NG tube to suction overnight. He only had 250 out on placement. He feels fairly well now, does not have any abdominal pain. We will plan a CT scan of the abdomen and pelvis tomorrow. We will base further decisions on clinical course and radiological findings. He may need a laparoscopic evaluation to assure he does not have a postoperative obstruction or internal hernia, although at this time as he has marked ileus.
--- NOTE | 2017-08-15 19:09 | RAD ---
AP ABDOMINAL RADIOGRAPH 08/15/17 HISTORY: Nasogastric tube placement. COMPARISON: 08/15/17 at 1503 hours. FINDINGS: The upper abdomen is excluded from view. A nasogastric tube has been placed in the interim which over lies the left upper quadrant and likely overlies the region of the body of the stomach, the tip is no t imaged. Dilated loops of small bowel are visualized as noted on the prior exam which are with gaseo us distention of the loops of small bowel. Radiopaque suture material overlies the right upper quadra nt. IMPRESSION: Interval placement of nasogastric tube which is incompletely imaged but does overlie the left upper q uadrant. Dilated gaseous distention of multiple loops of small bowel. Findings may be related to eith er ileus or partial small bowel obstruction. POS: [facility]
[2017-08-15] MEDS: Ondansetron HCl/PF 4 MG/2 ML Vial IVP PRN (19:40)
[2017-08-15] MEDS: Famotidine/PF 20 mg/2ml Vial SLOW IVP SCH (19:40)
[2017-08-15] MEDS: Enoxaparin Sodium 40 MG/0.4 ML SYRINGE SC SCH (19:40)
[2017-08-15] MEDS: Ketorolac Tromethamine 30 MG/ML VIAL IVP PRN (21:06)
[2017-08-16] MEDS: Lactated Ringer's 1,000 ML IV SCH ×3 (05:36→21:08)
[2017-08-16] MEDS: Ketorolac Tromethamine 30 MG/ML VIAL IVP PRN ×3 (07:46→21:30)
[2017-08-16] MEDS: Famotidine/PF 20 mg/2ml Vial SLOW IVP SCH ×2 (07:47→20:09)
[2017-08-16] MEDS: hydrALAZINE 20 MG/ML VIAL SLOW IVP PRN ×3 (07:47→20:09)
--- NOTE | 2017-08-16 11:56 | PRG ---
DATE OF SERVICE: 08/16/2017 SUBJECTIVE: Mr. Pacheco states that he is still feeling pretty bad although better than yesterday. He has an NG tube down and is not currently nauseated. His abdominal pain is a little better, but stil l present. He just got back from his CAT scan. OBJECTIVE: VITAL SIGNS: He has been afebrile. Blood pressure is elevated at 181/84, heart rate is 98. He is 9 6% saturated on room air. Labs yesterday were unremarkable. CT images reviewed, the written report is not yet back. His small bowel appears distended throughout. I do not see a definite transition point, although it became so mewhat less distended distally. The anastomosis appears patent and there is fluid and gas in the col on beyond the anastomosis. There is a small amount of fluid around the liver, but not very much. ASSESSMENT: Abdominal pain and nausea, status post extended right hemicolectomy. The CT images are suggestive of ileus rather than obstruction or leak, and I intend to manage him with continued bowel rest and NG unless the radiologist reports findings which I did not know.
--- NOTE | 2017-08-16 12:36 | CT ---
CT OF THE ABDOMEN AND PELVIS WITH CONTRAST: COMPARISON: 07/23/17. HISTORY: Status post colon resection on Matteo with abdominal pain. NG tube clamping. TECHNIQUE: Multiple contiguous axial images were obtained in a CT of the abdomen and pelvis with contrast. P.o. contrast was administered. Coronal reformats were performed. FINDINGS: An NG tube is seen in the stomach. Contrast is seen within the stomach and proximal small bowel. Th e small bowel loops are dilated throughout without a transition point. There is anastomotic stable l ine in the midline of the abdomen from prior anastomosis of the distal small bowel with the remaining colon. The colon is otherwise unremarkable. A small amount of free air in the abdomen is from recent surgery. A small amount of free fluid is al so seen in the abdomen and pelvis. There is a tiny hypodensity adjacent to the gallbladder within the liver which likely represents a sm all cyst. The gallbladder, kidneys, adrenal glands, spleen, and pancreas are unremarkable. Degenerative changes are seen in the spine. The visualized inferior thorax is unremarkable. Air is seen in the subcutaneous soft tissues of the abdominal wall. IMPRESSION: There are dilated loops of small bowel without a clear transition point. This most likely represent s a postoperative ileus. POS: [facility]
[2017-08-16] MEDS: Acetaminophen 1,000 MG in Premix Bag 1 BAG IVPB PRN (17:30)
[2017-08-16] MEDS: Enoxaparin Sodium 40 MG/0.4 ML SYRINGE SC SCH (20:09)
[2017-08-17] MEDS: hydrALAZINE 20 MG/ML VIAL SLOW IVP PRN ×2 (00:11→20:03)
[2017-08-17] MEDS: Acetaminophen 1,000 MG in Premix Bag 1 BAG IVPB PRN (01:08)
[2017-08-17] MEDS: Lactated Ringer's 1,000 ML IV SCH ×4 (04:17→19:18)
[2017-08-17] MEDS: Ketorolac Tromethamine 30 MG/ML VIAL IVP PRN (08:06)
[2017-08-17] MEDS: Famotidine/PF 20 mg/2ml Vial SLOW IVP SCH ×2 (08:08→20:02)
[2017-08-17 08:30] LABS: Anion Gap 14 mmol/L (10-20); BUN (Urea Nitrogen) 12 mg/dL (8.4-25.7); Calc. Creatinine Clearance 99 mL/min (70-130); Calcium 9.2 mg/dL (7.8-10.44); Carbon Dioxide 24 mmol/L (23-31); Chloride 101 mmol/L (98-107); Estimated GFR-MDRD Greater than 90; Glucose 72 mg/dL (83-110); Magnesium 1.6 mg/dL (1.6-2.6); Phosphorus 3.2 mg/dL (2.3-4.7); Potassium 3.9 mmol/L (3.5-5.1); Sodium 135 mmol/L (136-145)
[2017-08-17 08:44] LABS: Anisocytosis MODERATE=16-30 cells (100X) (0-5/hpf); Band 3 % (5-11); Eosinophils 2 % (0-10); Hemoglobin 7.8 g/dL (14.0-18.0); Hypochromia MODERATE=16-30 cells (100X) (0-5/hpf); Lymphocytes 18 % (21-51); MDiff Complete? YES; Mean Corpuscular HGB CONC 28.5 g/dL (32.0-36.0); Mean Corpuscular Volume 70.1 fl (80.0-94.0); Mean Platelet Volume 9.6 fL (7.4-10.4); Monocytes 10 % (0-10); Neutrophil 67 % (42-75); Platelet Count 422 thou/uL (130-400); Polychromasia SLIGHT = 2-3 cells (100X) (0-2/hpf); RBC Distribution Width 21.8 % (11.5-14.5); Red Blood Cell (RBC) Count 3.92 mill/uL (4.70-6.10); Schistocytes SLIGHT = 2-5 cells (100X) (0-1/hpf); Target Cells SLIGHT = 2-5 cells (100X) (0-1/hpf); White Blood Cell (WBC) Count 6.8 thou/uL (4.8-10.8)
--- NOTE | 2017-08-17 09:57 | RAD ---
UPRIGHT AND SUPINE IMAGES OF THE ABDOMEN: INDICATION: Concern for ileus. COMPARISON: Prior exam dated 08/15/17. IMPRESSION: Gastric catheter projects in the region of the fundus and cardia. The dilated loops of small bowel s een within the central abdomen are stable. The previously administered enteric contrast is at the le hector of the sigmoid colon. No free air is evident. The extent of the dilated loops of small bowel ap pear largely similar to the comparison study. IMPRESSION: 1. Stable changes of small bowel ileus. 2. Contrast is seen at the level of the distal sigmoid colon. 3. Gastric catheter. POS: [facility]
[2017-08-17] MEDS ORDERED: Furosemide 20 MG TAB PO SCH (10:15)
[2017-08-17] MEDS ORDERED: Lisinopril 20 MG TAB PO SCH (10:15)
[2017-08-17] MEDS: Ondansetron HCl/PF 4 MG/2 ML Vial IVP PRN (10:44)
--- NOTE | 2017-08-17 13:18 | PRG ---
DATE OF SERVICE: 08/17/2017 SUBJECTIVE: Mr. Pacheco is feeling a little better today. He is not as nauseated as he was. He is st ill having abdominal pain and distention. His blood pressure was up quite a bit this morning at 173/ 76, but I have restarted his home medications. He has been afebrile and his labs are unremarkable. His abdominal x-ray still shows ileus. Contrast has gone through to the distal colon. An NG tube is in appropriate position. Potassium, phosphorus and magnesium are normal. His abdomen is still dist ended and quiet. His incisions are clean. ASSESSMENT AND PLAN: Postoperative ileus being treated with bowel rest and decompression. Continue current management.
[2017-08-17] MEDS ORDERED: Cepastat Lozenges 1 LOZ PO PRN (19:33)
[2017-08-17] MEDS ORDERED: Chloraseptic Spray 180 ml Bottle PO PRN (19:33)
[2017-08-17] MEDS: Enoxaparin Sodium 40 MG/0.4 ML SYRINGE SC SCH (20:03)
[2017-08-18] MEDS: Ketorolac Tromethamine 30 MG/ML VIAL IVP PRN ×3 (00:08→15:11)
[2017-08-18] MEDS: Lactated Ringer's 1,000 ML IV SCH ×2 (01:46→08:27)
[2017-08-18] MEDS: Furosemide 20 MG TAB PO SCH (08:15)
[2017-08-18] MEDS: Famotidine/PF 20 mg/2ml Vial SLOW IVP SCH (08:15)
[2017-08-18] MEDS: Lisinopril 20 MG TAB PO SCH (08:15)
[2017-08-18] MEDS ORDERED: Acetaminophen 500 MG TAB PO PRN (10:01)
[2017-08-18] MEDS ORDERED: traMADol HCl 50 MG TAB PO PRN ×3 (10:01→10:06)
[2017-08-18] MEDS ORDERED: Ibuprofen 600 MG TAB PO PRN (10:01)
[2017-08-18] MEDS ORDERED: Lactated Ringer's 1,000 ML IV SCH (10:07)
--- NOTE | 2017-08-18 10:29 | PRG ---
DATE OF SERVICE: 08/18/2017 Kirby Pacheco is doing well today. He reports having a bowel movement and passing a large amoun t of flatus last night and this morning. Abdominal x-rays obtained yesterday, Friday, revealed gas i n his colon as well as the small bowel. PHYSICAL EXAMINATION: VITAL SIGNS: Temperature 98.3 degrees, 85, 16. LABORATORY: White count 6, hemoglobin 7.8 yesterday, basic metabolic profile normal yesterday. Accu -Cheks 80 to 75 in good control. LUNGS: Clear to auscultation. CARDIAC: Regular rate and rhythm without murmur or gallop. ABDOMEN: Soft. Slightly protuberant (baseline). Bowel sounds present. ASSESSMENT AND PLAN: 1. Ileus, resolving. I have discussed with him options for small bowel follow through per NG tube v ersus removing it. He had 700 mL out of his NG tube in the last 24 hours. Considering his bowel mov ement and flatus and occurrence of bowel sounds we will remove his NG tube and give him a diet trial. Should he have any nausea or vomiting today nurses will call me and we will make plans accordingly. Perhaps considering repeat abdominal x-rays tomorrow and/or small bowel follow through. 2. Diabetes mellitus. Advance diet to a diabetic diet, resume home medications. 3. 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 He has an Oncology appointment later this week. He has 1 out of 14 nodes involved. I have discu ssed this with him. I have told him that there is no evidence of disease radiologically or during la paroscopy. I have told him overall his prognosis is good, but due to the involvement of transmural d isease and 1 of 14 lymph nodes, he would benefit from a discussion regarding chemotherapy and he has an appointment with the oncologist outpatient later this week. I have reminded him that we will not start chemotherapy if elected to do so before 4-6 weeks. I received a phone call from his daughter a fter this conversation. His daughter reported to me the patient said that he had a short time to kleber e. I communicated to the patient and the daughter again that this is not the case and his prognosis is good and that is not what I said. Continue to reassure him about as good prognosis. Oncology fol low up for adjunctive therapy in the future prophylactic.
[2017-08-18] MEDS: Ibuprofen 600 MG TAB PO PRN (15:16)
[2017-08-18] MEDS ORDERED: chlorproMAZINE HCl 25 MG TAB PO PRN (16:35)
[2017-08-18] MEDS ORDERED: Clotrimazole/Betamethasone Cream 45 GM TUBE TOP SCH (21:00)
[2017-08-18] MEDS ORDERED: INSULIN GLARGINE HUM REC ANLOG 12 UNIT SQ SCH (21:00)
[2017-08-18] MEDS: Enoxaparin Sodium 40 MG/0.4 ML SYRINGE SC SCH (23:09)
[2017-08-18] MEDS: Insulin Detemir 100 UNITS/ML 12 UNITS in Pre-Filled Syringe 1 EACH SC SCH (23:11)
[2017-08-18] MEDS: Clotrimazole/Betamethasone Cream 45 GM TUBE TOP SCH (23:13)
[2017-08-18] MEDS: hydrALAZINE 20 MG/ML VIAL SLOW IVP PRN (23:42)
[2017-08-19] MEDS: Ibuprofen 600 MG TAB PO PRN ×2 (05:50→13:17)
[2017-08-19] MEDS: Lisinopril 20 MG TAB PO SCH (08:20)
[2017-08-19] MEDS: Furosemide 20 MG TAB PO SCH (08:20)
[2017-08-19] MEDS: Insulin Detemir 100 UNITS/ML 12 UNITS in Pre-Filled Syringe 1 EACH SC SCH (08:23)
[2017-08-19] MEDS: Clotrimazole/Betamethasone Cream 45 GM TUBE TOP SCH (08:26)
--- NOTE | 2017-08-19 15:11 | PRG ---
DATE OF SERVICE: 08/19/2017 SUBJECTIVE: Mr. Pacheco is doing well today. He is tolerating his diet. He has never had regular bow el movements. He is not having nausea or vomiting. OBJECTIVE: LUNGS: Clear to auscultation. CARDIAC: Heart rhythm murmur or gallop. ABDOMEN: Soft, nontender. Plan is to discharge home. He will follow up with Dr. Barajas on 08/27/2017 and with me in about 3 w eeks. Diet and activity as tolerated. Resume diabetic diet. Home meds and analgesics postoperative ly, Tylenol, Advil, Motrin.
[2017-08-19 15:49] VITALS: BP 148/69; TEMP 97.7
--- NOTE | 2017-08-19 18:00 | DIS ---
DATE OF ADMISSION: 08/15/2017 DATE OF DISCHARGE: 08/19/2017 DISCHARGE DIAGNOSES: 1. Ileus after laparoscopic extended right colon resection for a [id number] transverse colon cancer. 2. Diabetes mellitus. 3. Hypertension. 4. Ileus. PROCEDURES THIS HOSPITALIZATION: Three-view abdomen on admission and CT scan of abdomen and pelvis d uring hospitalization. DISCHARGE FOLLOWUP: Follow up with Dr. Nelson, 09/11/[address] Rocky Barajas 08/27/2017 at 1530. Diet and activity as tolerated. Resume home medications. Diabetic diet. Tylenol, ibuprofen for p.r .n. pain, Imdur 30 mg a.m., insulin 12 units b.i.d., ibuprofen p.r.n. pain, Lasix 20 mg a.m., Protoni x 40 mg a day, lisinopril 20 mg a day, tramadol p.r.n. Transverse colon cancer [id number]. Normal CEA level. Normal CAT scan of the abdomen and pelvis without evidence of metastasis. HISTORY: A 76-year-old black male underwent colonoscopy, found to have a tumor mass, biopsy-proven c ancer, CEA level, CAT scan, chest x-ray negative for any evidence of metastatic disease, undergoing 0 08/11/2017 laparoscopic right colon resection, discharged home to 08/13/2017, readmitted on 08/15/2017 , direct admission for nausea and vomiting. CBC, comprehensive metabolic profile were normal. Plain x-rays suggested ileus with small bowel dilatation, air fluid levels. His vital signs are normal. He was hospitalized. NG tube placed. A CAT scan of the abdomen and pelvis obtained the next morning did not reveal any surgical complications. He was treated with bowel rest, NG tube till bowel funct ion resumed. NG tube removed. He tolerated his diabetic diet and being discharged home at this time with followup as above.
== END 2017-08-19 18:45 | disposition home or self-care (01) | DRG 389 ==
LOC: SURG A 13:13
PROVIDERS: ADMIT Specialist; ATTEND Specialist
DX: K56.7 Ileus, unspecified (principal); C18.4 Malignant neoplasm of transverse colon; C77.2 Secondary and unspecified malignant neoplasm of intra-abdominal lymph nodes; E86.0 Dehydration; E11.9 Type 2 diabetes mellitus without complications; Z79.4 Long term (current) use of insulin; I10 Essential (primary) hypertension
CPT/HCPCS: 36415; 36416; 74018; 74019; 74022; 74177; 80048; 80053; 83735; 84100; 85025; 86850; 86900; 86901; A4216; J0131; J0360; J1650; J1815; J1885; J2270; J2405; Q0161; S0028

== ENCOUNTER 2017-09-10 07:13 | Day surgery (SDC) | payer MEDICARE ==
--- NOTE | 2017-09-02 10:59 | HP ---
HISTORY: Kirby Pacheco is a 76-year-old black male patient status post laparoscopic right hemicolectom y 08/11/2017 for a T3 N1A M0 adenocarcinoma of distal transverse colon status post extended right col ectomy and primary anastomosis. He did not require perioperative transfusion. He, however, did requ caitlyn readmission as he was discharged 2 days postoperatively, but readmitted due to nausea and vomitin g and had an ileus resolve nonoperatively. His bowel function is good. He has seen Dr. Rocky rios and [facility] is requested for chemotherapy access. We will plan this next week. Risk of infection , bleeding, reoperation, malfunction of the port discussed. PAST SURGICAL HISTORY: As noted above. Otherwise noncontributory. PAST MEDICAL HISTORY: 1. Diabetes mellitus type 2 on insulin. 2. Hypertension. 3. Preoperative cardiac stress test normal. TOBACCO: 1/2 pack per day. ALCOHOL: Socially. ALLERGIES: None. MEDICATIONS: Zocor, Nystatin, Mobic, isosorbide, furosemide, aspirin, caffeine, acetaminophen, lisin opril, insulin 12 units subcu b.i.d. REVIEW OF SYSTEMS: Ten point otherwise noncontributory. PHYSICAL EXAMINATION: VITAL SIGNS: Blood pressure 141/67, 107, 98.1 degrees, weight 172 pounds, 66 inches, 27 BMI. HEENT: Unremarkable. LUNGS: Clear to auscultation. CARDIAC: Regular rate and rhythm without murmur or gallop. ABDOMEN: Soft, nontender, well-healed surgical wounds. No evidence of hernia. ABDOMEN: Soft, nontender, no palpable masses. EXTREMITIES: Unremarkable. No ankle edema. ASSESSMENT AND PLAN: In need of chemotherapy and antineoplastic access for treatment of T3 N1A M0 tr ansverse colon cancer. He has seen Dr. Barajas. He is followed by Dr. Mayo. We will plan this next week under IV sedation and local anesthesia. No further labs are necessary.
[2017-09-03 10:02] VITALS: BMI 29.2
[2017-09-10] MEDS ORDERED: CEFAZOLIN/Water 2 GM/20 ML SYRINGE ONE (07:32)
[2017-09-10] MEDS ORDERED: Lidocaine 2% 10 ML INJ ONE (10:05)
[2017-09-10] MEDS ORDERED: Bupivacaine HCl 0.5%/Epinephrine 1:200,000/PF 30 ml Vial ONE (10:05)
[2017-09-10] MEDS ORDERED: PHENYLEPHRINE-NS 100 MCG/ML 10 ML SYRINGE ONE (11:23)
[2017-09-10] MEDS ORDERED: Propofol 200 MG/20 ML VIAL ONE (11:23)
[2017-09-10] MEDS ORDERED: Glycopyrrolate 0.2 MG/ML 5 ML SYRINGE ONE (11:23)
[2017-09-10] MEDS ORDERED: Ondansetron HCl/PF 4 MG/2 ML Vial ONE (11:23)
[2017-09-10] MEDS ORDERED: Propofol 500 MG/50 ML VIAL ONE (11:26)
[2017-09-10] MEDS ORDERED: Fentanyl 100 MCG/2 ML VIAL ONE (11:26)
--- NOTE | 2017-09-10 12:32 | OP ---
DATE OF PROCEDURE: 09/10/2017 PREOPERATIVE DIAGNOSIS: T3N1 colon cancer, in need of chemotherapy access, antineoplastic. POSTOPERATIVE DIAGNOSIS: T3N1 colon cancer in need of chemotherapy access, antineoplastic. PROCEDURE: Right subclavian vein low profile MediPort, CT scan compatible. Fluoroscopy used, ultras ound not used. SURGEON: Dr. Panda Nelson. ANESTHESIA: Intravenous sedation, local, 0.5% Marcaine, 30 mL, mixed with 2% Xylocaine, 10 mL. PROCEDURE IN DETAIL: Patient was taken to the operating room where under intravenous sedation supine position, neck and chest were prepared with ChloraPrep, draped in routine fashion. Local anesthetic mixture infiltrated into skin and subcutaneous tissue about the operative site. Trocar catheter can nulated the subclavian vein in infraclavicular approach obtaining good intravenous blood. J-wire thr eaded. Trocar catheter removed. Skin incised and enlarged sharply transversely, carried down throug h skin and subcutaneous tissue and a subcutaneous pocket created with blunt and sharp dissection usin g cautery for hemostasis. Dilator and pull-away sheath placed over the J-wire in the superior vena c zayra and dilator and J-wire removed. Catheter placed through the pull-away sheath, and pull-away gudino th removed. Fluoroscopic catheter tip placed in optimal position in the superior vena cava and asaf ter tailored to length, connected to the MediPort, which was placed in subcutaneous pocket, secured w ith 2 interrupted suture of 3-0 Prolene. Subcutaneous tissues approximated with 3-0 Monocryl, skin w ith subdermal 4-0 Monocryl, and DermaGlue applied. MediPort accessed with Gaspar needle, aspirated bl ood, and flushed with heparinized saline solution. Final fluoroscopic images revealed good line plac ements.
--- NOTE | 2017-09-10 15:09 | RAD ---
PORTABLE CHEST ONE VIEW: Date: 09-10-17 Time: 12:24 p.m. History: Mediport placement. FINDINGS: Comparison is made with exam of 08-15-17. The heart size is normal. There has been interval placement of a right subclavian [id number] tip in the projection of the SVC. No lobar consolidation, pneumothoraces or pleural effusions are seen. IMPRESSION: No acute process. POS: [facility]
== END 2017-09-10 13:00 | disposition home or self-care (01) ==
LOC: SDC 07:13
PROVIDERS: ATTEND Specialist
PROC: 02HV33Z Insertion of Infusion Device into Superior Vena Cava, Percutaneous Approach (ICD-10-PCS; principal; 2017-09-10)
PROC: B518ZZA Fluoroscopy of Superior Vena Cava, Guidance (ICD-10-PCS; 2017-09-10)
DX: C18.9 Malignant neoplasm of colon, unspecified (principal); E11.9 Type 2 diabetes mellitus without complications; I10 Essential (primary) hypertension; F17.210 Nicotine dependence, cigarettes, uncomplicated; Z79.82 Long term (current) use of aspirin; Z79.4 Long term (current) use of insulin; Z79.899 Other long term (current) drug therapy; Z90.49 Acquired absence of other specified parts of digestive tract
CPT/HCPCS: 36561; 71045; 82962; C1788; 36416; J0670; J1642; J2704; J3010

== ENCOUNTER 2019-07-29 06:31 | Observation (INO) | payer MEDICARE ==
[2019-07-29] MEDS ORDERED: Nitroglycerin 0.4 MG TAB 1 EACH ONE (06:38)
[2019-07-29] MEDS ORDERED: Nitroglycerin 2% Ointment 1 INCH/1 GM Packet ONE (06:48)
[2019-07-29 10:16] LABS: Troponin I 0.026 ng/mL (< 0.028)
[2019-07-29 13:02] VITALS: BMI 32.3
[2019-07-29] MEDS ORDERED: Senokot S 8.6-50 MG TAB PO PRN (13:51)
[2019-07-29] MEDS ORDERED: Acetaminophen 650 MG Suppository PR PRN (13:51)
[2019-07-29] MEDS ORDERED: Ondansetron ODT 4 MG TAB PO PRN (13:51)
[2019-07-29] MEDS ORDERED: Ondansetron PF 4 MG/2 ML Vial IVP PRN (13:51)
[2019-07-29] MEDS ORDERED: Acetaminophen 325 MG TAB PO PRN (13:51)
[2019-07-29] MEDS ORDERED: Guaifenesin DM 100-10/5 ML UDCUP PO PRN (13:51)
[2019-07-29] MEDS ORDERED: Dextrose 5% in Water 1,000 ML IV PRN (13:52)
[2019-07-29] MEDS ORDERED: HumaLOG 300 UNITS/3 ML VIAL SC PRN (13:52)
[2019-07-29] MEDS ORDERED: Dextrose 50% Abboject 50 ML SYRINGE SLOW IVP PRN (13:52)
[2019-07-29 14:05] LABS: Troponin I 0.021 ng/mL (< 0.028)
[2019-07-29] MEDS: HumaLOG 300 UNITS/3 ML VIAL SC PRN (16:45)
[2019-07-29] MEDS: Insulin Glargine 12 UNITS in Pre-Filled Syringe SC SCH (20:19)
[2019-07-29] MEDS: Famotidine 20 MG TAB PO SCH (20:19)
[2019-07-29] MEDS ORDERED: Non-Formulary Item 1 EACH (Insulin Glargine,Hum.Rec.Anlog [Lantus Solostar] 12 UNIT) SQ SCH (21:00)
[2019-07-30 05:29] LABS: Anion Gap 9 mmol/L (10-20); BUN (Urea Nitrogen) 12 mg/dL (8.4-25.7); Calc. Creatinine Clearance 53 mL/min (70-130); Carbon Dioxide 26 mmol/L (23-31); Chloride 104 mmol/L (98-107); Estimated GFR-MDRD 56; Glucose 229 mg/dL (83-110); Potassium 4.5 mmol/L (3.5-5.1); Sodium 134 mmol/L (136-145)
--- NOTE | 2019-07-30 05:39 | HP ---
PRIMARY CARE PHYSICIAN: Zay Mayo DO CHIEF COMPLAINT: Chest pain. HISTORY OF PRESENT ILLNESS: This is a 78-year-old male with a history of previous [place] and congestive heart failure back in 1990 with angioplasty done. He has had no problems with congestive failure since, but he is chronically on isosorbide, aspirin, and lisinopril, also with insulin-dependent diabetes. Per the patient's daughter, the patient is always reporting a little bit of twinging in his left chest, but he has never gone to the doctor for it. Early this morning around 4 a.m., he had chest pain waking him up from sleep, it was right around the nipple area, but deep to that, it was a throbbing pain, it did not let up. He took a couple of nitroglycerins that he had left over from a few years ago, but they did not help the pain, so he went into the [facility]. There, he had a normal troponin. His EKG did have some mild ST and T-wave abnormalities, but no ST elevation. He was given nitroglycerin sublingual and nitroglycerin transdermal and then transferred here. The patient remained with some chest pain until when he arrived to our emergency room, at which point, it resolved. He has not had any chest pain since. He denies any diaphoresis. No nausea or vomiting. No other symptoms associated with the chest pain. The chest pain is not radiating anywhere. He has never had pain like this before. REVIEW OF SYSTEMS: CONSTITUTIONAL: No fevers. No chills. EYES: No double vision or blurred vision. ENT: No congestion, drainage, or sore throat. CARDIOVASCULAR: See HPI. PULMONARY: No coughing, wheezing, or shortness of breath. GASTROINTESTINAL: No abdominal pain. No nausea or vomiting. No diarrhea or constipation. GENITOURINARY: No dysuria or hematuria. MUSCULOSKELETAL: He has some chronic arthritis pains, but no other musculoskeletal complaints. SKIN: No rashes or lesions noted. NEUROLOGIC: The patient does have some mild tingling in bilateral fingertips ever since he finished chemotherapy for his colon cancer last year, but no other or new neurologic complaints. PAST MEDICAL HISTORY: 1. Coronary artery disease. 2. Diastolic congestive heart failure without any recent need for diuretics. 3. Hypertension. 4. Dyslipidemia. 5. Prostate cancer. 6. Colon cancer, spread only to lymph nodes, status post surgery and chemotherapy. 7. Chronic iron deficiency anemia requiring iron infusions with Dr. Barajas, most recently in April of last year and requiring a transfusion of 2 units last month. 8. Diabetes mellitus type 2, insulin dependent. PAST SURGICAL HISTORY: 1. Cardiac catheterization and percutaneous angioplasty. 2. Prostate biopsy. 3. Partial colectomy for colon cancer. 4. Port placement. SOCIAL HISTORY: No alcohol or illicit drug use. The patient smokes cigarettes, about 12 cigarettes per day. He is a . He lives with his children. FAMILY HISTORY: Significant for colon cancer in his sister, also with asthma in his siblings, diabetes and coronary artery disease in his father, and hypertension in his mother. ALLERGIES: NO KNOWN DRUG ALLERGIES. CURRENT MEDICATIONS: 1. Lisinopril 20 mg daily. 2. Isosorbide mononitrate 30 mg daily. 3. Lantus 12 units subcu twice a day. 4. Aspirin 81 mg daily. PHYSICAL EXAMINATION: VITAL SIGNS: Blood pressure 138/64, pulse 73, respirations 18, O2 saturations 99% on room air, temperature 97.9. GENERAL: Well-developed, mildly obese male, in no acute distress. HEENT: Pupils are equal, round, and reactive to light. He does have bilateral cataracts. Oropharynx clear without lesions, erythema, or exudate. NECK: Supple. No lymphadenopathy. No thyroid nodules or enlargement. No JVD. HEART: Regular rate and rhythm. No murmurs, rubs, or gallops. LUNGS: Clear to auscultation bilaterally. No wheezes, crackles, or rhonchi. No tenderness to palpation of the chest wall. ABDOMEN: Soft, nontender to palpation. Normoactive bowel sounds. No hepatosplenomegaly or other masses. EXTREMITIES: No clubbing, cyanosis, or edema. SKIN: No rashes or lesions noted. NEUROLOGIC: Intact strength and sensation in all extremities. No facial droop. PSYCHIATRIC: Alert and oriented x3. Normal mood and affect. LABORATORY DATA: Troponin negative x3. White blood cell count 10.7, hemoglobin 8.6 up from 6.7 before his transfusion last month and this is about as good as it gets since he was diagnosed with colon cancer 2 years ago, hematocrit 28.4, platelet count 299. Complete metabolic panel is notable for a sodium of 135, creatinine of 1.36 which is actually up from the year before last when it was normal, glucose of 325, creatine kinase of 293. The rest was normal. CK-MB was negative. IMAGING STUDIES: Chest x-ray, I did review the chest x-ray done in the emergency room along with the radiologist's report. It does show a MediPort catheter on the right side. No cardiomegaly. Clear lung rogers. No acute cardiopulmonary process. ASSESSMENT: 1. Chest pain. The patient has multiple cardiac risk factors including known coronary artery disease requiring angioplasty many decades ago, smoking, insulin-dependent diabetes, and high blood pressure. No evidence of acute [place] on his EKG or cardiac markers. He is currently asymptomatic. He did have a negative stress test before his colon cancer surgery in 2018, but has not had any cardiac evaluation since then. We will go ahead and do a stress test on him tomorrow morning. If this remains normal, he can be discharged to home to follow up with Cardiology outpatient. If it is abnormal, then we can have Cardiology see him here. 2. Diabetes mellitus type 2, insulin dependent. We will resume the patient's insulin and put him on a diabetic diet and check blood sugars q.a.c. and at bedtime along with a light insulin sliding scale. 3. Hypertension. Resume the patient's antihypertensives. 4. Chronic iron deficiency anemia. The patient reports after prodding from his daughter that he does take iron pills twice a day every day, though he did not list this on his medication list earlier. His daughter seems skeptical that he was even taking them. We will go ahead and start him on twice a day iron supplements and have him follow up with Dr. Barajas as an outpatient. 5. Gastrointestinal prophylaxis, put the patient on Pepcid twice a day. 6. Deep venous thrombosis prophylaxis. We will hold off on Lovenox due to his chronic anemia, so we will put him in SCDs while in bed. CODE STATUS: I did discuss this with the patient. He is a full code. Should he be incapacitated, he states that his daughter, Denise Pacheco, would be his medical decision maker. Job ID: [id number]
[2019-07-30 06:29] LABS: #Basophils 0.1 thou/uL (0.0-0.2); #Eosinphils 0.4 thou/uL (0.0-0.7); #Lymphocytes 1.7 thou/uL (1.20-3.40); #Monocytes 0.6 thou/uL (0.11-0.59); #Neutrophils 6.4 thou/uL (1.40-6.50); %Basophils 0.6 % (0.0-1.0); %Eosinophils 4.1 % (0.0-10.0); %Lymphocytes 18.8 % (21.0-51.0); %Monocytes 6.8 % (0.0-10.0); %Neutrophils 69.6 % (42.0-75.0); Anisocytosis MODERATE=16-30 cells (100X) (0-5/hpf); Elliptocytes SLIGHT = 2-5 cells (100X) (0-1/hpf); Hemoglobin 8.4 g/dL (14.0-18.0); Hypochromia SLIGHT = 6-15 cells (100X) (0-5/hpf); MDiff Complete? YES; Mean Corpuscular HGB CONC 29.2 g/dL (32.0-36.0); Mean Corpuscular Hemoglobin 20.3 pg (27.0-31.0); Mean Corpuscular Volume 69.4 fL (78.0-98.0); Mean Platelet Volume 11.5 fL (7.4-10.4); Platelet Count 292 thou/uL (130-400); RBC Distribution Width 21.3 % (11.5-14.5); Red Blood Cell (RBC) Count 4.16 mill/uL (4.70-6.10); White Blood Cell (WBC) Count 9.2 thou/uL (4.8-10.8)
[2019-07-30] MEDS ORDERED: Enoxaparin Sodium 40 MG/0.4 ML SYRINGE SC SCH (09:00)
[2019-07-30] MEDS: Famotidine 20 MG TAB PO SCH ×2 (09:20→20:12)
[2019-07-30] MEDS: Aspirin 81 mg Enteric Coated Tablet PO SCH (09:20)
[2019-07-30] MEDS: Insulin Glargine 12 UNITS in Pre-Filled Syringe SC SCH ×2 (09:20→20:12)
[2019-07-30] MEDS: Lisinopril 20 MG TAB PO SCH (09:20)
[2019-07-30] MEDS ORDERED: Iron Sucrose Complex 100 MG in Sodium Chloride 0.9% 100 ML IVPB SCH (10:30)
[2019-07-30 10:45] LABS: Hemoglobin A1c 8.3 % (4.0-6.0)
[2019-07-30] MEDS ORDERED: Iron, Sodium Ferric Gluconate 125 MG in Sodium Chloride 0.9% 100 ML IVPB SCH (11:45)
[2019-07-30] MEDS: Isosorbide Mononitrate (ER) 30 MG TAB PO SCH (15:55)
[2019-07-30] MEDS ORDERED: ADENOSINE 60 MG/20 ML VIAL ONE (15:56)
--- NOTE | 2019-07-30 16:00 | NM ---
EXAM: CARDIAC SPECT HISTORY: Chest pain, coronary disease, CHF, hypertension, diabetes, dyslipidemia, smoker TECHNIQUE: A myocardial perfusion scan was performed using the single isotope 1 day protocol with jessica hnetium 99m sestamibi. [10 mCi] was injected intravenously for the rest exam followed by 30 mCi for the stress study. Pharmacologic stress with adenosine was monitored and interpreted by Zachary Murphy nurse practitioner FINDINGS: Homogeneous tracer distribution is seen in the myocardial segments on stress and rest image s without fixed or reversible defects. Left ventricular cavity appears dilated. Gated SPECT LVEF: 47% Wall motion exam: Mild global hypokinesis IMPRESSION: No evidence of reversible ischemia
[2019-07-30] MEDS: HumaLOG 300 UNITS/3 ML VIAL SC PRN (16:53)
--- NOTE | 2019-07-30 17:18 | PDOC.HOSPP ---
- Subjective Encounter Date: 07/30/19 Encounter Time: 10:00 Subjective: pt up in bed no complains - Objective Vital Signs & Weight: Vital Signs (12 hours) Temp Pulse Resp BP BP Pulse Ox 07/30/19 11:23 98.4 F 86 16 160/72 H 97 07/30/19 09:20 155/74 H 07/30/19 07:34 98.0 F 81 16 155/74 H 98 Weight Weight 192 lb 14.472 oz I&O: 07/29/19 07/30/19 07/31/19 06:59 06:59 06:59 Intake Total 1210 Balance 1210 Result Diagrams: 07/30/19 04:41 07/30/19 04:41 Additional Labs: Accuchecks 07/30/19 07/30/19 07/29/19 16:36 11:29 20:21 POC Glucose 280 H 178 H 328 H Hospitalist ROS - Review of Systems Cardiovascular: denies: chest pain, palpitations, orthopnea, paroxysmal noc. dyspnea, edema, light headedness, other Gastrointestinal: denies: nausea, vomiting, abdominal pain, diarrhea, constipation, melena, hematochezia, other Genitourinary: denies: dysuria, frequency, incontinence, hematuria, retention, other - Medication Medications: Active Medications Generic Name Dose Route Start Last Admin Trade Name Freq PRN Reason Stop Dose Admin Aspirin 81 mg 07/30/19 09:00 07/30/19 09:20 Ecotrin PO 81 mg DAILY ERICK Administration Famotidine 20 mg 07/29/19 21:00 07/30/19 09:20 Pepcid PO 20 mg BID ERICK Administration Insulin Glargine 12 units/ 0.12 mls @ 0 mls/hr 07/29/19 21:00 07/30/19 09:20 Miscellaneous Medication SC Not Given BID ERICK Insulin Human Lispro 0 units 07/29/19 13:52 07/29/19 16:45 Humalog SC 5 unit .MILD SLIDING SCALE PRN Administration Mild Correctional Scale Isosorbide Mononitrate 30 mg 07/30/19 09:00 07/30/19 15:55 Imdur Er PO 30 mg QAM ERICK Administration Lisinopril 20 mg 07/30/19 09:00 07/30/19 09:20 Zestril PO 20 mg QAM ERICK Administration - Exam Neck: negative: supple, symmetric, no JVD, no thyromegaly, no lymphadenopathy, no carotid bruit, JVD Heart: negative: RRR, no murmur, no gallops, no rubs, normal peripheral pulses, irregular, diminshed peripheral pulses, murmur present, II/IV, III/IV Respiratory: negative: CTAB, no wheezes, no rales, no ronchi, normal chest expansion, no tachypnea, normal percussion, rales, rhonchi, tachypneic, wheezes Hosp A/P (1) Chest pain Code(s): R07.9 - CHEST PAIN, UNSPECIFIED Status: Acute (2) Anemia Code(s): D64.9 - ANEMIA, UNSPECIFIED Status: Acute (3) Colon cancer Code(s): C18.9 - MALIGNANT NEOPLASM OF COLON, UNSPECIFIED Status: Acute (4) DM2 (diabetes mellitus, type 2) Status: Chronic - Plan pt up in bed no complains. pt's stress test indicated a low ef from his 2018 echo and mild global hypokinesis. will get cardiology consult
[2019-07-31] MEDS: Isosorbide Mononitrate (ER) 30 MG TAB PO SCH (10:05)
[2019-07-31] MEDS: Famotidine 20 MG TAB PO SCH (10:05)
[2019-07-31] MEDS: Aspirin 81 mg Enteric Coated Tablet PO SCH (10:05)
[2019-07-31] MEDS: Lisinopril 20 MG TAB PO SCH (10:06)
[2019-07-31 11:48] VITALS: BP 120/55; TEMP 97.9
[2019-07-31] MEDS: Insulin Glargine 12 UNITS in Pre-Filled Syringe SC SCH (12:00)
--- NOTE | 2019-07-31 12:18 | EKG ---
Test Reason : CP Blood Pressure : / mmHG Vent. Rate : 070 BPM Atrial Rate : 070 BPM P-R Int : 120 ms QRS Dur : 090 ms QT Int : 390 ms P-R-T Axes : 006 -40 131 degrees QTc Int : 421 ms Normal sinus rhythm Left axis deviation Voltage criteria for left ventricular hypertrophy Abnormal ECG Confirmed by ARMEN ENNIS ([id number]), fan mail editor KEYLA LIN ([id number]) on 07/31/2019 12:17:32 PM Referred By: Confirmed By:ARMEN ENNIS
--- NOTE | 2019-07-31 14:58 | CON ---
DATE OF CONSULTATION: 07/31/2019 REASON FOR CONSULTATION: Chest pain and abnormal stress test. PRIMARY DENTAL INTERNSHIP: Bryson Olivia MD HISTORY OF PRESENT ILLNESS: Mr. Pacheco is a pleasant 78-year-old gentleman, who comes to the hospital for evaluation of chest pain. He states that about 4 a.m. on the day of admission, chest pain woke him up from sleep. Chest pain was around the nipple area, but it felt deep and throbbing. He took nitroglycerin, which he has had over a year. They did not help, so he went to the [facility], where he was evaluated and transferred over for further evaluation. He was ruled out with negative troponins and unremarkable EKG. He underwent stress testing and his nuclear study showed no evidence of reversible ischemia, but reduced EF at 47% and mild global hypokinesis. Rubber Turner was consulted for this. On my evaluation, Mr. Pacheco is chest pain free. He denies any tightness or pressure. No shortness of breath. PAST MEDICAL HISTORY: 1. History of coronary artery disease with what appears to be a heart catheterization back in the . It is unclear on the chart, it says that he might have had angioplasty, but he tells me that he remembers being told everything looked fine. 2. History of diastolic heart failure. 3. Hypertension. 4. Hyperlipidemia. 5. History of prostate cancer. 6. Colon cancer, spreading to lymph nodes. He had surgery and chemotherapy. 7. Iron-deficiency anemia with chronic infusions by Dr. Barajas. 8. Type 2 diabetes. SURGICAL HISTORY: 1. Cardiac catheterization plus or minus percutaneous angioplasty in . 2. Prostate biopsy. 3. Partial colectomy for secondary colon cancer. 4. Port placement. SOCIAL HISTORY: No alcohol. He smokes about 12 cigarettes a day. No drug use. FAMILY HISTORY: Sister with colon cancer. Asthma in siblings. Father with coronary artery disease. ALLERGIES: NO KNOWN DRUG ALLERGIES. OUTPATIENT MEDICATIONS: 1. Lisinopril 20 mg a day. 2. Isosorbide mononitrate 30 mg a day. 3. Lantus 12 units subcu b.i.d. 4. Aspirin 81 a day. REVIEW OF SYSTEMS: A 12-point review of systems was done and was all negative unless states in the history of present illness. PHYSICAL EXAMINATION: VITAL SIGNS: Temperature 97.9, pulse 90, respiratory rate 18, satting 95% on room air, and blood pressure 120/55. GENERAL: Awake, alert, and oriented x3, in no distress. HEENT: Normocephalic and atraumatic. NECK: Supple. LUNGS: Clear. CARDIOVASCULAR: S1 and S2. No S3 or S4. No murmurs. ABDOMEN: Soft. Positive bowel sounds. EXTREMITIES: No edema. SKIN: Warm and dry. LABORATORY DATA: Laboratory work was reviewed. White count of 9.2, hemoglobin of 8.4, hematocrit of 28, and platelet count of 292. Chemistry with a sodium of 134, BUN 12, creatinine 1.47, and GFR 56. Troponin is negative x3. Nuclear stress test was reviewed. Chest x-ray was reviewed. ASSESSMENT AND PLAN: 1. Chest pain. 2. Questionable history of coronary artery disease in the past. 3. History of diastolic heart failure. 4. Abnormal perfusion scan. PLAN: 1. I spoke with Mr. Pacheco at length about possibly doing a heart catheterization to further risk stratify as having a reduced EF and global hypokinesis, would suggest severe diffuse disease and findings of no reversibility instead of being no ischemia, may possibly mean balanced ischemia. Currently, he tells me he needs to give a talk at the charge and he is not interested in any procedures. He tells me he will gladly follow up as an outpatient, but he wants to be placed on medications. He states he is not having any more chest pain. He feels much better. I think this is reasonable. He is concurrently refusing a heart catheterization, but he tells me he will be amenable to doing this as an outpatient. He would like to be placed on medications and followup. We will start statin drugs and beta-carri to treat his mild LV dysfunction. 2. We will provide him with a card and he will call to set up an appointment in the next few weeks. 3. He may be discharged home at this time with medical therapy for his mild cardiomyopathy, which presumed to be possibly ischemic in nature. 4. Counseled on tobacco cessation, 10 minutes. Thank you for letting us to participate in the care of your patient. We will sign off. Follow up in the office as scheduled in 2 to 4 weeks. Job ID: [id number]
[2019-07-31] MEDS ORDERED: Carvedilol 3.125 MG TAB PO SCH (17:00)
[2019-07-31] MEDS ORDERED: Atorvastatin Calcium 20 MG TAB PO SCH (21:00)
--- NOTE | 2019-07-31 21:59 | DIS ---
DATE OF ADMISSION: 07/29/2019 DATE OF DISCHARGE: 07/31/2019 DISCHARGE DIAGNOSES: 1. Chest pain. 2. History of coronary artery disease, status post angioplasty. 3. Hypertension. HOSPITAL COURSE: Patient is a 78-year-old male who initially presented to the hospital with chest pain which was atypical in nature. Given his risk of heart disease, he underwent a stress test, which indicated a depressed EF from his prior one, EF was 47% with some mild global hypokinesis. At this time, Cardiology was consulted. However, patient refused to stay over the weekend for a cardiac cath on Friday. The Cardiology did explain to him the importance of this and so did I. I did tell the patient that if his symptoms return, he needs to come into the hospital. He will be sent home with medical management for now and he will follow up with Cardiology for scheduling of outpatient cardiac catheterization. HOME MEDICATIONS: Will be; 1. Atorvastatin 20 mg at bedtime. 2. Carvedilol 3.125 b.i.d. 3. Iron 240 mg daily. 4. Aspirin 81 mg daily. 5. Insulin 12 units b.i.d. 6. Lisinopril 20 mg q.a.m. PHYSICAL EXAMINATION: VITAL SIGNS: Temperature 97.9, 90, 18, 95% on room air, and 120/55. GENERAL: He is awake, alert, and oriented x3. Does not appear in distress. CV: S1, S2 present. No murmurs, rubs, or gallops. He will be discharged home with followup with his primary and Cardiology. I have educated him that he may have to follow up with his hemoglobin of 8.4, however, he does have a history of colon cancer in the past. Job ID: [id number]
== END 2019-07-31 13:57 | disposition home or self-care (01) ==
LOC: ERS 06:31 → ERHOLD 06:51 → 2SW 12:53
PROVIDERS: ADMIT Internal Medicine; ATTEND Internal Medicine
DX: R07.89 Other chest pain (principal); I25.10 Atherosclerotic heart disease of native coronary artery without angina pectoris; I11.0 Hypertensive heart disease with heart failure; I50.30 Unspecified diastolic (congestive) heart failure; E11.9 Type 2 diabetes mellitus without complications; E78.5 Hyperlipidemia, unspecified; D50.9 Iron deficiency anemia, unspecified; F17.210 Nicotine dependence, cigarettes, uncomplicated; I25.2 Old myocardial infarction; Z79.4 Long term (current) use of insulin; Z79.82 Long term (current) use of aspirin; Z79.899 Other long term (current) drug therapy
CPT/HCPCS: 78452; 80048; 82962 ×3; 83036; 84484; 85025; 93005; 93017; 96365; 96366; 97139 ×3; 99285; 99406; A9500; G0378 ×3; 36415; 36416; J0153; J1815; J2916; J3490

== ENCOUNTER 2019-08-06 12:34 | Emergency (ER) | payer MEDICARE ==
[2019-08-06 13:20] LABS: #Eosinphils 0.4 thou/uL (0.0-0.7); #Lymphocytes 2.2 thou/uL (1.20-3.40); #Monocytes 0.8 thou/uL (0.11-0.59); #Neutrophils 6.2 thou/uL (1.40-6.50); %Basophils 0.4 % (0.0-1.0); %Eosinophils 3.9 % (0.0-10.0); %Lymphocytes 23.4 % (21.0-51.0); %Monocytes 7.9 % (0.0-10.0); %Neutrophils 64.5 % (42.0-75.0); Hemoglobin 7.8 g/dL (14.0-18.0); Mean Corpuscular HGB CONC 30.4 g/dL (32.0-36.0); Mean Corpuscular Hemoglobin 21.5 pg (27.0-31.0); Mean Corpuscular Volume 70.7 fL (78.0-98.0); Mean Platelet Volume 6.3 fL (7.4-10.4); Platelet Count 255 thou/uL (130-400); RBC Distribution Width 23.9 % (11.5-14.5); Red Blood Cell (RBC) Count 3.62 mill/uL (4.70-6.10); White Blood Cell (WBC) Count 9.6 thou/uL (4.8-10.8)
[2019-08-06 13:35] LABS: Anisocytosis MODERATE=16-30 cells (100X) (0-5/hpf); Hypochromia SLIGHT = 6-15 cells (100X) (0-5/hpf); MDiff Complete? YES; Microcytosis SLIGHT = 6-15 cells (100X) (0-5/hpf); Ovalocytes SLIGHT = 2-5 cells (100X) (0-1/hpf); Platelet Morphology Comment Appears Adequate; Poikilocytosis SLIGHT = 6-15 cells (100X) (0-5/hpf); Polychromasia MODERATE = 3-4 cells (100X) (0-2/hpf); Schistocytes SLIGHT = 2-5 cells (100X) (0-1/hpf); Target Cells SLIGHT = 2-5 cells (100X) (0-1/hpf); Tear Drops SLIGHT = 2-5 cells (100X) (0-1/hpf)
--- NOTE | 2019-08-06 13:41 | RAD ---
EXAM: CHEST ONE VIEW HISTORY: Chest pain. COMPARISON: 07/29/2019 FINDINGS: Cardiac silhouette is magnified by projection but stable in size. Pulmonary vasculature is within nor mal limits. Right subclavian Mediport catheter is stable in position. Mild atelectasis is present at the right lung base. Lungs are otherwise clear. There has been no significant interval change from prior study. IMPRESSION: No acute cardiopulmonary process.
[2019-08-06 13:46] LABS: ALT (SGPT) 10 U/L (8-55); AST (SGOT) 11 U/L (5-34); Albumin 3.7 g/dL (3.4-4.8); Alkaline Phosphatase 101 U/L (40-110); Anion Gap 8 mmol/L (10-20); BUN (Urea Nitrogen) 9 mg/dL (8.4-25.7); Bilirubin, Total 0.3 mg/dL (0.2-1.2); Calc. Creatinine Clearance 0 mL/min (70-130); Calcium 9.5 mg/dL (7.8-10.44); Carbon Dioxide 28 mmol/L (23-31); Chloride 103 mmol/L (98-107); Estimated GFR-MDRD 65; Globulin 2.7 g/dL (2.4-3.5); Glucose 315 mg/dL (83-110); Potassium 4.7 mmol/L (3.5-5.1); Protein, Total 6.4 g/dL (5.8-8.1); Sodium 134 mmol/L (136-145)
== END 2019-08-06 15:40 | disposition home or self-care (01) ==
LOC: ERS 12:34
DX: R07.9 Chest pain, unspecified (principal); K21.9 Gastro-esophageal reflux disease without esophagitis; E11.9 Type 2 diabetes mellitus without complications; I11.0 Hypertensive heart disease with heart failure; I50.9 Heart failure, unspecified; E78.5 Hyperlipidemia, unspecified; E78.00 Pure hypercholesterolemia, unspecified; F17.210 Nicotine dependence, cigarettes, uncomplicated; Z79.82 Long term (current) use of aspirin; Z79.4 Long term (current) use of insulin; Z79.899 Other long term (current) drug therapy
CPT/HCPCS: 36415; 71045; 80053; 84484; 85025; 93005

== ENCOUNTER 2020-09-25 14:18 | Emergency (ER) | payer MEDICARE ==
[2020-09-25] MEDS ORDERED: Ondansetron PF 4 MG/2 ML Vial ONE (14:59)
[2020-09-25] MEDS ORDERED: Morphine 4 MG/ML VIAL ONE (14:59)
[2020-09-25 15:29] LABS: #Eosinphils 0.1 thou/uL (0.0-0.7); #Lymphocytes 1.5 thou/uL (1.20-3.40); #Monocytes 0.9 thou/uL (0.11-0.59); #Neutrophils 6.6 thou/uL (1.40-6.50); %Basophils 0.3 % (0.0-1.0); %Eosinophils 0.9 % (0.0-10.0); %Lymphocytes 16.3 % (21.0-51.0); %Monocytes 9.5 % (0.0-10.0); Hemoglobin 8.6 g/dL (14.0-18.0); Mean Corpuscular HGB CONC 30.6 g/dL (32.0-36.0); Mean Corpuscular Hemoglobin 23.3 pg (27.0-31.0); Mean Corpuscular Volume 76.1 fL (78.0-98.0); Mean Platelet Volume 9.9 fL (7.4-10.4); Platelet Count 329 thou/uL (130-400); RBC Distribution Width 18.3 % (11.5-14.5); Red Blood Cell (RBC) Count 3.67 mill/uL (4.70-6.10)
[2020-09-25 15:47] LABS: ALT (SGPT) 14 U/L (8-55); AST (SGOT) 11 U/L (5-34); Albumin 3.5 g/dL (3.4-4.8); Alkaline Phosphatase 254 U/L (40-110); Anion Gap 13 mmol/L (10-20); BUN (Urea Nitrogen) 9 mg/dL (8.4-25.7); Bilirubin, Total 0.2 mg/dL (0.2-1.2); Calc. Creatinine Clearance 0 mL/min (70-130); Calcium 9.4 mg/dL (7.8-10.44); Carbon Dioxide 27 mmol/L (23-31); Chloride 98 mmol/L (98-107); Globulin 3.4 g/dL (2.4-3.5); Glucose 516 mg/dL (83-110); Potassium 4.4 mmol/L (3.5-5.1); Protein, Total 6.9 g/dL (5.8-8.1); Sodium 134 mmol/L (136-145)
== END 2020-09-25 16:30 | disposition home or self-care (01) ==
LOC: ERS 14:18
DX: K64.4 Residual hemorrhoidal skin tags (principal); K92.1 Melena; E11.9 Type 2 diabetes mellitus without complications; I11.0 Hypertensive heart disease with heart failure; I50.9 Heart failure, unspecified; K21.9 Gastro-esophageal reflux disease without esophagitis; F17.210 Nicotine dependence, cigarettes, uncomplicated; Z79.82 Long term (current) use of aspirin; Z79.4 Long term (current) use of insulin
CPT/HCPCS: 36415; 36416; 80053; 85025; 96374; 96375; J2270; J2405

== ENCOUNTER 2020-10-15 20:36 | Inpatient (IN) | payer MEDICARE ==
[2020-10-16 00:02] VITALS: BMI 25.9
[2020-10-16] MEDS ORDERED: Dextrose 50% Abboject 50 ML SYRINGE SLOW IVP PRN (00:28)
[2020-10-16] MEDS ORDERED: Ondansetron PF 4 MG/2 ML Vial IVP PRN (00:28)
[2020-10-16] MEDS ORDERED: Dextrose 5% in Water 1,000 ML IV PRN (00:28)
[2020-10-16] MEDS ORDERED: hydrALAZINE 20 MG/ML VIAL SLOW IVP PRN (00:31)
[2020-10-16] MEDS ORDERED: Carvedilol 3.125 MG TAB PO SCH ×2 (01:30)
[2020-10-16] MEDS ORDERED: HumaLOG 300 UNITS/3 ML VIAL SC PRN (01:45)
[2020-10-16] MEDS: Acetaminophen 325 MG TAB PO PRN ×3 (01:57→20:38)
[2020-10-16] MEDS: Cefepime 1 GM in Sodium Chloride 0.9% 100 ML IVPB SCH ×2 (01:58→12:59)
[2020-10-16] MEDS: Sodium Chloride 0.9% 1,000 ML IV SCH ×2 (01:58→20:40)
[2020-10-16 02:57] LABS: SARS-CoV-2 PCR by NAA Not Detected (NotDetected)
[2020-10-16 04:36] LABS: #Eosinphils 0.1 thou/uL (0.0-0.7); #Lymphocytes 1.3 thou/uL (1.20-3.40); #Monocytes 1.1 thou/uL (0.11-0.59); #Neutrophils 10.8 thou/uL (1.40-6.50); %Basophils 0.3 % (0.0-1.0); %Eosinophils 0.5 % (0.0-10.0); %Lymphocytes 9.9 % (21.0-51.0); %Monocytes 8.5 % (0.0-10.0); %Neutrophils 80.9 % (42.0-75.0); Hemoglobin 7.3 g/dL (14.0-18.0); Mean Corpuscular HGB CONC 30.5 g/dL (32.0-36.0); Mean Corpuscular Hemoglobin 22.9 pg (27.0-31.0); Mean Platelet Volume 9.6 fL (7.4-10.4); Platelet Count 338 thou/uL (130-400); RBC Distribution Width 18.3 % (11.5-14.5); White Blood Cell (WBC) Count 13.4 thou/uL (4.8-10.8)
[2020-10-16 04:55] LABS: Anion Gap 10 mmol/L (10-20); BUN (Urea Nitrogen) 9 mg/dL (8.4-25.7); Calc. Creatinine Clearance 61 mL/min (70-130); Calcium 8.9 mg/dL (7.8-10.44); Carbon Dioxide 25 mmol/L (23-31); Chloride 102 mmol/L (98-107); Glucose 361 mg/dL (83-110); Potassium 4.1 mmol/L (3.5-5.1); Sodium 133 mmol/L (136-145)
[2020-10-16] MEDS: HumaLOG 300 UNITS/3 ML VIAL SC PRN ×3 (06:00→16:59)
[2020-10-16] MEDS: Carvedilol 3.125 MG TAB PO SCH ×2 (08:08→16:59)
[2020-10-16] MEDS: Fluconazole 100 MG TAB PO SCH (08:08)
[2020-10-16] MEDS: Folic Acid 1 MG TAB PO SCH (08:08)
[2020-10-16] MEDS: Lisinopril 10 MG TAB PO SCH (08:08)
[2020-10-16] MEDS ORDERED: FERROUS GLUCONATE 240 MG PO SCH (09:00)
[2020-10-16] MEDS: Lantus 1000 UNITS/10 ML VIAL SC SCH ×2 (09:10→16:58)
[2020-10-16] MEDS: Vancomycin HCl 750 MG in Sodium Chloride 0.9% 250 ML 250 ML IVPB SCH ×2 (10:26→20:37)
[2020-10-16] MEDS ORDERED: Atorvastatin Calcium 40 MG TAB PO SCH (21:00)
[2020-10-16] MEDS ORDERED: Cyclobenzaprine 10 MG TAB PO SCH (23:30)
[2020-10-17] MEDS: Cefepime 1 GM in Sodium Chloride 0.9% 100 ML IVPB SCH (01:17)
[2020-10-17 03:10] VITALS: BP 161/74; TEMP 98.6
[2020-10-17 05:03] LABS: #Eosinphils 0.1 thou/uL (0.0-0.7); #Lymphocytes 1.3 thou/uL (1.20-3.40); #Neutrophils 9.1 thou/uL (1.40-6.50); %Basophils 0.4 % (0.0-1.0); %Eosinophils 0.7 % (0.0-10.0); %Lymphocytes 11.4 % (21.0-51.0); %Neutrophils 78.5 % (42.0-75.0); Hemoglobin 7.1 g/dL (14.0-18.0); Mean Corpuscular HGB CONC 28.5 g/dL (32.0-36.0); Mean Corpuscular Hemoglobin 21.3 pg (27.0-31.0); Mean Corpuscular Volume 74.7 fL (78.0-98.0); Mean Platelet Volume 9.7 fL (7.4-10.4); Platelet Count 353 thou/uL (130-400); RBC Distribution Width 18.2 % (11.5-14.5); Red Blood Cell (RBC) Count 3.35 mill/uL (4.70-6.10); White Blood Cell (WBC) Count 11.6 thou/uL (4.8-10.8)
[2020-10-17 05:24] LABS: Anion Gap 10 mmol/L (10-20); BUN (Urea Nitrogen) 8 mg/dL (8.4-25.7); Calc. Creatinine Clearance 69 mL/min (70-130); Calcium 8.8 mg/dL (7.8-10.44); Carbon Dioxide 23 mmol/L (23-31); Chloride 106 mmol/L (98-107); Glucose 145 mg/dL (83-110); Potassium 3.9 mmol/L (3.5-5.1); Sodium 135 mmol/L (136-145)
[2020-10-17] MEDS: HumaLOG 300 UNITS/3 ML VIAL SC PRN (06:02)
[2020-10-17 08:39] LABS: Vancomycin, Trough 6.9 ug/mL
[2020-10-17] MEDS: Lantus 1000 UNITS/10 ML VIAL SC SCH ×2 (09:03→09:21)
[2020-10-17] MEDS: Carvedilol 3.125 MG TAB PO SCH (09:22)
[2020-10-17] MEDS: Fluconazole 100 MG TAB PO SCH (09:23)
[2020-10-17] MEDS: Folic Acid 1 MG TAB PO SCH (09:23)
[2020-10-17] MEDS: Vancomycin HCl 750 MG in Sodium Chloride 0.9% 250 ML 250 ML IVPB SCH (09:24)
[2020-10-17] MEDS: Lisinopril 10 MG TAB PO SCH (09:24)
== END 2020-10-17 09:35 | disposition left against medical advice (07) | DRG 872 ==
LOC: 2NO 20:36
PROVIDERS: ADMIT Internal Medicine; ATTEND Emergency Medicine
DX: A41.9 Sepsis, unspecified organism (principal); I13.0 Hypertensive heart and chronic kidney disease with heart failure and stage 1 through stage 4 chronic kidney disease, or unspecified chronic kidney disease; N39.0 Urinary tract infection, site not specified; I50.32 Chronic diastolic (congestive) heart failure; N50.9 Disorder of male genital organs, unspecified; N18.30 Chronic kidney disease, stage 3 unspecified; N48.9 Disorder of penis, unspecified; D64.9 Anemia, unspecified; E11.65 Type 2 diabetes mellitus with hyperglycemia; E11.22 Type 2 diabetes mellitus with diabetic chronic kidney disease; Z20.822 Contact with and (suspected) exposure to COVID-19; F17.210 Nicotine dependence, cigarettes, uncomplicated; K21.9 Gastro-esophageal reflux disease without esophagitis; Z79.82 Long term (current) use of aspirin
CPT/HCPCS: 36415; 36416; 72192; 80048; 80202; 85025; 87070; 87086; 87635; J0360; J0692; J1815; J3370; J3490; J7050; U0003; U0005

== ENCOUNTER 2021-01-29 14:26 | Emergency (ER) | payer MEDICARE | END 2021-01-29 17:46 | disposition home or self-care (01) | LOC: ERS 14:26 | DX: S60.522A Blister (nonthermal) of left hand, initial encounter (principal); S60.521A Blister (nonthermal) of right hand, initial encounter; K64.4 Residual hemorrhoidal skin tags; K21.9 Gastro-esophageal reflux disease without esophagitis; E11.9 Type 2 diabetes mellitus without complications; Z79.4 Long term (current) use of insulin; I11.0 Hypertensive heart disease with heart failure; I50.9 Heart failure, unspecified; E78.5 Hyperlipidemia, unspecified; E78.00 Pure hypercholesterolemia, unspecified; F17.210 Nicotine dependence, cigarettes, uncomplicated; Z79.82 Long term (current) use of aspirin; Z79.899 Other long term (current) drug therapy; X58.XXXA Exposure to other specified factors, initial encounter | CPT/HCPCS: 99283 ==

== ENCOUNTER 2021-07-12 17:54 | Emergency (ER) | payer MEDICARE ==
[2021-07-12 18:59] LABS: Hemoglobin 6.3 g/dL (14.0-18.0); Mean Corpuscular HGB CONC 28.6 g/dL (32.0-36.0); Mean Corpuscular Hemoglobin 19.1 pg (27.0-31.0); Mean Corpuscular Volume 66.7 fL (78.0-98.0); RBC Distribution Width 26.7 % (11.5-14.5); White Blood Cell (WBC) Count 9.1 thou/uL (4.8-10.8)
[2021-07-12 19:10] LABS: ALT (SGPT) 10 U/L (8-55); AST (SGOT) 13 U/L (5-34); Albumin 3.5 g/dL (3.4-4.8); Alkaline Phosphatase 385 U/L (40-110); Anion Gap 8 mmol/L (10-20); BUN (Urea Nitrogen) 11 mg/dL (8.4-25.7); Bilirubin, Total 0.3 mg/dL (0.2-1.2); Calc. Creatinine Clearance 0 mL/min (70-130); Calcium 9.5 mg/dL (7.8-10.44); Carbon Dioxide 29 mmol/L (23-31); Chloride 105 mmol/L (98-107); Globulin 3.6 g/dL (2.4-3.5); Glucose 126 mg/dL (83-110); Potassium 4.1 mmol/L (3.5-5.1); Protein, Total 7.1 g/dL (5.8-8.1); Sodium 138 mmol/L (136-145)
[2021-07-12 19:19] LABS: #Basophils 0.1 thou/uL (0.0-0.2); #Eosinphils 0.3 thou/uL (0.0-0.7); #Lymphocytes 1.5 thou/uL (1.20-3.40); #Monocytes 0.8 thou/uL (0.11-0.59); #Neutrophils 6.5 thou/uL (1.40-6.50); %Basophils 0.6 % (0.0-1.0); %Eosinophils 3.2 % (0.0-10.0); %Lymphocytes 15.8 % (21.0-51.0); %Neutrophils 71.3 % (42.0-75.0); Anisocytosis MODERATE=16-30 cells (100X) (0-5/hpf); Hypochromia MODERATE=16-30 cells (100X) (0-5/hpf); MDiff Complete? YES; Macrocytosis SLIGHT = 6-15 cells (100X) (0-5/hpf); Mean Platelet Volume 10.4 fL (7.4-10.4); Microcytosis SLIGHT = 6-15 cells (100X) (0-5/hpf); Ovalocytes SLIGHT = 2-5 cells (100X) (0-1/hpf); Platelet Count 548 thou/uL (130-400); Platelet Morphology Comment Appears Increased; Polychromasia SLIGHT = 2-3 cells (100X) (0-2/hpf); Reflex for Review?? NO; Stomatocytes SLIGHT = 2-5 cells (100X) (0-1/hpf); Target Cells SLIGHT = 2-5 cells (100X) (0-1/hpf)
[2021-07-13 00:29] LABS: Bilirubin Negative (Negative); Blood, Urine Negative (Negative); Clarity Clear (Clear); Glucose, Urine (Dipstick) Normal (Negative); Ketone, Urine Negative (Negative); Leukocyte 75 Leu/uL (Negative); Nitrite 2+ (Negative); Protein, Urine (Dipstick) 20 mg/dL (Neg-Trace); RBC/HPF 0-3 HPF (0-3); Specific Gravity, Urine 1.022 (1.002-1.036); Squamous Epithelial None Seen HPF (0-3); Urobilinogen Normal mg/dL (Less than 2); pH, Urine 5.5 (5.0-9.0)
[2021-07-13 00:30] LABS: Bacteria/HPF 1+ HPF (None Seen)
== END 2021-07-13 01:25 | disposition home or self-care (01) ==
LOC: ERS 17:54
DX: D64.9 Anemia, unspecified (principal); E11.22 Type 2 diabetes mellitus with diabetic chronic kidney disease; K21.9 Gastro-esophageal reflux disease without esophagitis; I13.0 Hypertensive heart and chronic kidney disease with heart failure and stage 1 through stage 4 chronic kidney disease, or unspecified chronic kidney disease; I50.9 Heart failure, unspecified; N18.30 Chronic kidney disease, stage 3 unspecified; E78.5 Hyperlipidemia, unspecified; E78.00 Pure hypercholesterolemia, unspecified; F17.210 Nicotine dependence, cigarettes, uncomplicated; Z79.899 Other long term (current) drug therapy
CPT/HCPCS: 36430; 80053; 85025; 86850; 86900; 86901; 86920; P9016; 36415; 81003; 81015; 99284

== ENCOUNTER 2021-07-30 12:59 | Outpatient (CLI) | payer MEDICARE ==
[2021-07-31 07:55] LABS: SARS-CoV-2 PCR by NAA Not Detected (NotDetected)
== END 2021-07-30 13:00 | disposition home or self-care (01) ==
LOC: LABBT 12:59
PROVIDERS: ATTEND Internal Medicine Hematology & Oncology
DX: Z01.812 Encounter for preprocedural laboratory examination (principal); Z20.822 Contact with and (suspected) exposure to COVID-19
CPT/HCPCS: U0003; U0005

== ENCOUNTER 2021-08-10 09:45 | Outpatient (CLI) | payer MEDICARE ==
[2021-08-10 17:37] LABS: SARS-CoV-2 PCR by NAA Not Detected (NotDetected)
== END 2021-08-10 09:46 | disposition home or self-care (01) ==
LOC: LABBT 09:45
PROVIDERS: ATTEND Internal Medicine Hematology & Oncology
DX: Z01.812 Encounter for preprocedural laboratory examination (principal); R93.2 Abnormal findings on diagnostic imaging of liver and biliary tract; Z20.822 Contact with and (suspected) exposure to COVID-19
CPT/HCPCS: U0003; U0005

== ENCOUNTER 2021-08-15 08:06 | Day surgery (SDC) | payer MEDICARE ==
[2021-08-13 15:38] VITALS: BMI 26.2
[2021-08-15 09:24] VITALS: BP 143/71; TEMP 99
== END 2021-08-15 13:35 | disposition home or self-care (01) ==
LOC: CT 08:06
PROVIDERS: ATTEND Internal Medicine Hematology & Oncology
PROC: 0FD23ZX Extraction of Left Lobe Liver, Percutaneous Approach, Diagnostic (ICD-10-PCS; principal; 2021-08-15)
DX: C78.7 Secondary malignant neoplasm of liver and intrahepatic bile duct (principal); C18.4 Malignant neoplasm of transverse colon; I11.0 Hypertensive heart disease with heart failure; I50.9 Heart failure, unspecified; E11.9 Type 2 diabetes mellitus without complications; I25.2 Old myocardial infarction; I25.10 Atherosclerotic heart disease of native coronary artery without angina pectoris; K21.9 Gastro-esophageal reflux disease without esophagitis; D50.9 Iron deficiency anemia, unspecified; E78.5 Hyperlipidemia, unspecified; F17.210 Nicotine dependence, cigarettes, uncomplicated; Z85.46 Personal history of malignant neoplasm of prostate; Z79.4 Long term (current) use of insulin; Z79.84 Long term (current) use of oral hypoglycemic drugs; Z79.899 Other long term (current) drug therapy; Z90.49 Acquired absence of other specified parts of digestive tract
CPT/HCPCS: 47000; 77012; 81479; 88307; 88313; 88333; 88341; 88342; 88361; 88377